=== PATIENT | female | born 1950 | race Caucasian/White ===

== ENCOUNTER → 2016-11-01 | Outpatient (CLI) | payer OTHER, MEDICARE ==
[~2016-11-01] MED LIST: AMBI10TA PO; ASPI81TA85 PO; CALC600T57 PO; CINN500C9 PO; FISH100049 PO; GABA-282 PO; HYDR-3781 PO; JANU100T PO; LOSA25TA8 PO; MAGN250T9 PO; METF850T PO; MULT1TAB9 PO; NATU400T PO; NORC1TAB4 PO; PRAV40TA2 PO; VITATAB11 PO; ZETI10TA2 PO; [UNRECOGNIZED DRUG - OTHER] PO
--- NOTE | 2016-11-13 01:14 | ECWPNPC ---
PATIENT NAME: DELMY CUELLO : 1950 GENDER: FEMALE VISIT DATE: 11/01/2016 DISCHARGE DATE: 11/01/16 1414 VISIT LOCKED DATE TIME: PHYSICIAN: TAMICA MEADOWS PHYSICIAN PAGER NO: [phone] RESOURCE: TAMICA MEADOWS HISTORY OF PRESENT ILLNESS GENERAL: 66 YEAR OLD FEMALE PATIENT WITH HISTORY OF CHRONIC SHOULDER PAIN. PATIENT DESCRIBES THE PAIN ACHING AND STABBING WITH A PAIN SCORE OF 5/10 ON TODAY'S VISIT. PATIENT WAS IN A WORK RELATED INJURY ON 07/21/2009 WHEN SHE FELL AT WORK AND A RESULT HAS HAD FOUR SHOULDER SURGERIES. PATIENT STATES THAT ON THE 3 RD SURGERY SHE DEVELOPED NON HODGKIN LYMPHOMA AND THEN SHE HAD A FOURTH SURGERY TO FIX THAT. PATIENT REPORTS THAT SHE HAS TRIED PHYSICAL THERAPY IN THE PAST WITHOUT ANY IMPROVEMENTS IN MOBILITY AND FUNCTIONAL OR A DECREASE IN PAIN. PATIENT STATES THAT USING VOLTAREN GEL HELPS WITH THE PAIN ON THE RIGHT SHOULDER. PATIENT STATES THAT INJECTIONS AT THIS TIME DO NOT REALLY TO TAKE AWAY THE PAIN, THE MEDICATIONS HELP BUT THE PAIN IS STILL THERE. PATIENT DENIES UNEXPLAINABLE WEIGHT LOSS, FEVER, CHILLS, NEW CHANGES ON HER URINARY OR BOWEL CONTROL. CURRENT MEDICATIONS TAKING VOLTAREN 1 % GEL DIRECTED TRANSDERMAL QID PRN FOR PAIN TAKING VITAMIN E 400 UNIT CAPSULE 1 CAP(S) ORALLY ONCE A DAY TAKING VITAMIN B COMPLEX OTC CAPSULE 2 CAP(S) ORALLY ONCE A DAY TAKING FISH OIL 1000 MG CAPSULE 1 CAPSULE ORALLY TWICE A DAY TAKING GABAPENTIN 300 300 MG TABLET 1 TAB(S) P.O. THREE TIMES A DAY TAKING HYDROCODONE-ACETAMINOPHEN 5-325 MG TABLET 1 TABLET NEEDED ORALLY THREE X DAILY TAKING PRAVASTATIN SODIUM 40 MG TABLET 1 TABLET ORALLY ONCE A DAY TAKING AMBIEN 10 MG TABLET 1 TABLET AT BEDTIME ORALLY QHS, PRN SLEEP, MDD=ONE, NOTES: REFERENCE #: [id number] TAKING ZETIA 10 MG TABLET 1 TABLET ORALLY ONCE A DAY TAKING CALCIUM 600 + D 600-400 MG-UNIT TABLET OTC 1 TABLET ORALLY TWICE A DAY TAKING ACCU-CHEK ACTIVE CARE KIT 1 .. METER SUBCUTANEOUSLY DIRECTED TAKING ACCU-CHEK ACTIVE -- STRIP DIRECTED SUBCUTANEOUSLY DAILY NEEDED TAKING ASPIRIN 81 MG TABLET 1 TABLET ORALLY ONCE A DAY TAKING JANUVIA 100 MG TABLET 1 TABLET ORALLY ONCE A DAY TAKING METFORMIN HCL 850 MG TABLET 1 TABLET WITH A MEAL ORALLY TID TAKING JARDIANCE 25 MG TABLET 1 TABLET ORALLY ONCE A DAY TAKING BASAGLAR KWIKPEN 100 UNIT/ML SOLUTION PEN-INJECTOR 20 UNITS SUBCUTANEOUS DAILY TAKING PEN NEEDLES 1/2" 29G X 12MM MISCELLANEOUS 100 SUBCUTANEOUSLY DAILY TAKING MULTIVITAMINS OTC TABLET 2 TABLET ORALLY ONCE A DAY TAKING MAGNESIUM 250 MG 1 TABLET ONCE DAILY TAKING VITAMIN D 1000 UNIT TABLET OTC 1 TABLET ORALLY ONCE A DAY PAST MEDICAL HISTORY PMB/PELVIC PAIN CHRONIC DRY EYE DEPRESSION ALLERGIC RHINITIS OSTEOARTHRITIS CVA WITH MEMORY EFFECT RESIDUAL, ABOUT 2005. 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 EXAMINATION GENERAL: PATIENT IS ALERT O X 3 AND COOPERATIVE. PATIENT IS ABLE TO ABDUCT HER LEFT ARM, BUT THE ARM ONLY TO 45 DEGREES WITH DISCOMFORT. PATIENT RIGHT ARM IS WEAKER AT FLEXION AND EXTENSION COMPARED TO THE LEFT ARM. HAND INSIDE BARREL LATHE OPERATOR IS WEAKER ON THE RIGHT COMPARED TO THE LEFT. ASSESSMENTS PAIN IN RIGHT SHOULDER - M25.511 (PRIMARY) TREATMENT PAIN IN RIGHT SHOULDER NOTES: WE DISCUSSED SEVERAL ISSUES WITH MRS. CUELLO'S PAIN MANAGEMENT CASE. I DISCUSSED IN DETAIL WITH THE PATIENT ABOUT A SPINAL COLUMN STIMULATOR. AT THIS TIME THAT PATIENT WOULD LIKE TO PROCEED FORWARD. I WILL WRITE A SCRIPT FOR A THORACIC AND CERVICAL MRI TO DETERMINE IF THERE IS ENOUGH SPACE IN THE SPINE. PATIENT WILL BE REFERRED TO A PSYCHOLOGIST FOR A PSYCHOLOGICAL EVALUATION. PATIENT TO FOLLOW UP WITH ME IN 6 WEEKS. INSTRUCTIONS WERE GIVEN, QUESTIONS WERE ANSWERED, PATIENT REPORTS UNDERSTANDING AND AGREES WITH THE PLAN. I, SINA GUSMAN, DOCUMENTED THE ABOVE INFORMATION ACTING A SCRIBE FOR DR. MEADOWS. I HAVE REVIEWED THE ABOVE DOCUMENT, WRITTEN BY SINA CARMONA AND I VERIFY THAT IT IS ACCURATE. PROCEDURES PN WORKMANS' COMP OPINION IN YOUR OPINION, WAS THE INCIDENT THAT THE PATIENT DESCRIBED THE COMPETENT MEDICAL CAUSE OF THIS INJURY/ILLNESS? YES ARE THE PATIENT'S COMPLAINTS CONSISTENT WITH HIS/HER HISTORY OF THE INJURY/ILLNESS? YES IS THE PATIENT'S HISTORY OF THE INJURY/ILLNESS CONSISTENT WITH YOUR OBJECTIVE FINDING? YES WHAT IS THE PERCENTAGE OF TEMPORARY IMPAIRMENT? MARKED = 75% IS THE PATIENT WORKING? NO DOCTOR ON SITE: TAMICA NIÑO MD PROCEDURE CODES FA211 ESTABILISHED PATIENT [facility] FACILITY CHARGE G8730 PAIN ASSESS POS TOOL F/U PLAN DOC G8427 DOC MEDS VERIFIED W/PT OR RE DISPOSITION & COMMUNICATION FOLLOW UP 6 WEEKS ELECTRONICALLY SIGNED BY TAMICA MEADOWS MD ON 11/12/2016 AT 06:04 PM EDT DISCLAIMER : THIS IS A VISIT SUMMARY EXTRACTED FROM THE [employer] CHART. IT IS NOT A COPY OF THE [employer] PROGRESS NOTE. MONICA
== END ==
LOC: M PAIN 13:20
PROVIDERS: ATTEND Anesthesiology
DX: G89.29 Other chronic pain (principal); M25.511 Pain in right shoulder; F32.9 Major depressive disorder, single episode, unspecified; J30.9 Allergic rhinitis, unspecified; M19.90 Unspecified osteoarthritis, unspecified site; I69.311 Memory deficit following cerebral infarction; I10 Essential (primary) hypertension; E11.9 Type 2 diabetes mellitus without complications; E78.00 Pure hypercholesterolemia, unspecified; G60.9 Hereditary and idiopathic neuropathy, unspecified; Z88.8 Allergy status to other drugs, medicaments and biological substances; Z79.82 Long term (current) use of aspirin; Z79.84 Long term (current) use of oral hypoglycemic drugs; Z79.899 Other long term (current) drug therapy

== ENCOUNTER → 2016-11-19 | Outpatient (CLI) | payer MEDICARE, OTHER ==
--- NOTE | 2016-11-19 11:26 | REPMRS ---
Patient History The patient states she has not had a clinical breast exam in over a year. Patient is postmenopausal, had previous chemotherapy at age 64, and has history of nonhodgkins lymphoma cancer at age 60. Family history of breast cancer in sister at age 60 and breast cancer in sister at age 67. Digital Woman Screen Mammo: November 19, 2016 - Exam #: [id number] Bilateral CC and MLO view(s) were taken. Technologist: Shari Grimm, Technologist Prior study comparison: November 17, 2015, digital woman screen mammo performed at [facility] [employer]. April 25, 2014, digital woman screen mammo performed at [facility] [employer]. FINDINGS: There are scattered fibroglandular densities. There has been no change in the appearance of the mammogram from the prior studies. There is a mild amount of residual fibroglandular tissue which is fairly symmetric. There is no interval development of dominant mass, architectural distortion, or clustered microcalcification suggestive of malignancy. ASSESSMENT: BI-RADS/ACR category 1 mammogram. Negative. Recommendation Routine screening mammogram in 1 year (for women over age 40). This mammogram was interpreted with the aid of an FDA-approved computer-aided dectection system. Electronically Signed By: Tam Arias MD 11/19/16 [id number]
== END ==
LOC: M WHC 09:48
PROVIDERS: ATTEND Nurse Practitioner
DX: Z12.31 Encounter for screening mammogram for malignant neoplasm of breast (principal); Z78.0 Asymptomatic menopausal state; Z92.21 Personal history of antineoplastic chemotherapy; Z85.9 Personal history of malignant neoplasm, unspecified; Z80.3 Family history of malignant neoplasm of breast

== ENCOUNTER → 2016-12-05 | Outpatient (CLI) | payer OTHER, MEDICARE ==
--- NOTE | 2016-12-14 00:30 | ECWPNPC ---
PATIENT NAME: DELMY CUELLO : 1950 GENDER: FEMALE VISIT DATE: 12/05/2016 DISCHARGE DATE: 12/05/16 1506 VISIT LOCKED DATE TIME: PHYSICIAN: TAMICA MEADOWS PHYSICIAN PAGER NO: [phone] RESOURCE: TAMICA MEADOWS REASON FOR APPOINTMENT 1. W/C RIGHT SHOULDER HISTORY OF PRESENT ILLNESS HISTORY OF PRESENT ILLNESS: PAIN THE PATIENT DESCRIBES THE PAIN... 66 YEAR OLD FEMALE PATIENT WITH HISTORY OF CHRONIC SHOULDER PAIN. PATIENT DESCRIBES THE PAIN ACHING AND STABBING WITH A PAIN SCORE OF 5/10 ON TODAY'S VISIT. PATIENT WAS IN A WORK RELATED INJURY ON 07/21/2009 WHEN SHE FELL AT WORK AND A RESULT HAS HAD FOUR SHOULDER SURGERIES. PATIENT STATES THAT ON THE 3RD SURGERY SHE DEVELOPED NON HODGKIN LYMPHOMA AND THEN SHE HAD A FOURTH SURGERY TO FIX THAT. PATIENT REPORTS THAT SHE HAS TRIED PHYSICAL THERAPY IN THE PAST WITHOUT ANY IMPROVEMENTS IN MOBILITY AND FUNCTIONAL OR A DECREASE IN PAIN. PATIENT STATES THAT USING VOLTAREN GEL HELPS WITH THE PAIN ON THE RIGHT SHOULDER. PATIENT STATES THAT INJECTIONS AT THIS TIME DO NOT REALLY TO TAKE AWAY THE PAIN, THE MEDICATIONS HELP BUT THE PAIN IS STILL THERE. MRS. CUELLO STATES THAT SHE IS WAITING FOR HEAR FROM THE PSYCHOLOGIST ABOUT HER EVALUATION. PATIENT DENIES UNEXPLAINABLE WEIGHT LOSS, FEVER, CHILLS, NEW CHANGES ON HER URINARY OR BOWEL CONTROL. FALL RISK SCREENING: SCREENING :NO FALLS IN THE PAST YEAR CURRENT MEDICATIONS TAKING JARDIANCE 25 MG TABLET 1 TABLET ORALLY ONCE A DAY TAKING ZETIA 10 MG TABLET 1 TABLET ONCE A DAY ORALLY 90 DAY(S) TAKING VOLTAREN 1 % GEL DIRECTED TRANSDERMAL QID PRN FOR PAIN TAKING FISH OIL 1000 MG CAPSULE 1 CAPSULE ORALLY TWICE A DAY TAKING GABAPENTIN 300 300 MG TABLET 1 TAB(S) P.O. THREE TIMES A DAY TAKING HYDROCODONE-ACETAMINOPHEN 5-325 MG TABLET 1 TABLET NEEDED ORALLY THREE X DAILY TAKING PRAVASTATIN SODIUM 40 MG TABLET 1 TABLET ORALLY ONCE A DAY TAKING AMBIEN 10 MG TABLET 1 TABLET AT BEDTIME ORALLY QHS, PRN SLEEP, MDD=ONE, NOTES: REFERENCE #: [id number] TAKING CALCIUM 600 + D 600-400 MG-UNIT TABLET OTC 1 TABLET ORALLY TWICE A DAY TAKING ACCU-CHEK ACTIVE CARE KIT 1 .. METER SUBCUTANEOUSLY DIRECTED TAKING ACCU-CHEK ACTIVE -- STRIP DIRECTED SUBCUTANEOUSLY DAILY NEEDED TAKING JANUVIA 100 MG TABLET 1 TABLET ORALLY ONCE A DAY TAKING METFORMIN HCL 850 MG TABLET 1 TABLET WITH A MEAL ORALLY TID TAKING BASAGLAR KWIKPEN 100 UNIT/ML SOLUTION PEN-INJECTOR 20 UNITS SUBCUTANEOUS DAILY TAKING PEN NEEDLES 1/2" 29G X 12MM MISCELLANEOUS 100 SUBCUTANEOUSLY DAILY TAKING MAGNESIUM 250 MG 1 TABLET ONCE DAILY TAKING KLOR-CON 10 10 MEQ TABLET EXTENDED RELEASE 1 TAB ORALLY DAILY TAKING MULTIVITAMINS OTC TABLET 2 TABLET ORALLY ONCE A DAY TAKING VITAMIN D 1000 UNIT TABLET OTC 1 TABLET ORALLY ONCE A DAY TAKING ASPIRIN 81 MG TABLET 1 TABLET ORALLY ONCE A DAY NOT-TAKING VITAMIN E 400 UNIT CAPSULE 1 CAP(S) ORALLY ONCE A DAY NOT-TAKING VITAMIN B COMPLEX OTC CAPSULE 2 CAP(S) ORALLY ONCE A DAY MEDICATION LIST REVIEWED AND RECONCILED WITH THE PATIENT PAST MEDICAL HISTORY PMB/PELVIC PAIN CHRONIC DRY EYE DEPRESSION ALLERGIC RHINITIS OSTEOARTHRITIS CVA WITH MEMORY EFFECT RESIDUAL, ABOUT 2005. 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 SKIN 2011 LIPOSUCTION BELLY FAT TAKEN OFF HYSTEROSCOPY, D&C WITH DR. CUNNINGHAM JUN 2011 EYE PLUGS INSERTED FOR DRY EYE MAY 2012 ROTATOR CUFF RIGHT SHOULDER 04/17/2013 SHOULDER SURGERY RIGHT DUE TO NONHODKINS LYMPOMA X3 03/2014 RIGHT SHOULDER SURGERY 2015 HYSTERECTOMY 2016 COLONOSCOPY 05/08/2015 FAMILY HISTORY NO FAMILY HISTORY DOCUMENTED. SOCIAL HISTORY GENERAL: TOBACCO USE ARE YOU A:FORMER SMOKER HOW LONG HAS IT BEEN SINCE YOU LAST SMOKED?> 10 YEARS VAPORNO E-CIGARETTENO BMI CARE GOAL FOLLOW-UP ABOVE NORMAL BMI FOLLOW-UPGIVING ENCOURAGEMENT TO EXERCISE ALCOHOL SCREENING DID YOU HAVE A DRINK CONTAINING ALCOHOL IN THE PAST YEAR?YES POINTS1 INTERPRETATIONNEGATIVE HOW OFTEN DID YOU HAVE A DRINK CONTAINING ALCOHOL IN THE PAST YEAR?MONTHLY OR LESS (1 POINT) HOW MANY DRINKS DID YOU HAVE ON A TYPICAL DAY WHEN YOU WERE DRINKING IN THE PAST YEAR?1 OR 2 (0 POINTS) HOW OFTEN DID YOU HAVE SIX OR MORE DRINKS ON ONE OCCASION IN THE PAST YEAR?NEVER (0 POINTS) RECREATIONAL DRUG USE DRUG USE? NO . CAFFEINE CAFFEINE USE?YES HOW OFTEN AND HOW MUCH? 2 CUPS PER DAY SEXUAL HX HAD SEX IN THE LAST 12 MONTHS (VAGINAL, ORAL, OR ANAL)?YES WITHMEN ONLY USE PROTECTION?NO HAVE YOU EVER HAD AN STD?NO HIV / HEP-C SCREENING HIV TEST OFFERED TO PATIENT:YES DATE OFFERED:10/28/2016 TEST ACCEPTED:NO REASON:PATIENT DECLINED HEP-C TEST OFFERED TO PATIENT:YES DATE OFFERED:10/28/2016 TEST ACCEPTED:NO REASON:PATIENT DECLINED OCCUPATION: RETIRED. MARITAL STATUS: . OTHERS AT HOME: SPOUSE. HINDUISM HINDUISM NO LUTHERAN BELIEFS THAT WOULD IMPACT HEALTH CARE. LANGUAGE LANGUAGES SPOKEN:MALAWIAN LEARNING BARRIERS / SPECIAL NEEDS CHANGE FROM LAST VISIT?NO 10/28/2016 BARRIERS TO LEARNING?NO HEARING IMPAIRED?NO VISION IMPAIRED?NO COGNITIVELY IMPAIRED?NO READINESS TO LEARN?YES LEARNING PREFERENCES?NO LEARNING CAPABILITIES PRESENT?YES EMOTIONAL BARRIERS?NO SPECIAL DEVICES?NO SKATESMAN NEEDED?NO PSYCHOLOGICAL HX TREATMENT NO . PAIN CLINIC PFS, CLERGY, PUBLIC HEALTH REFERRALS PFS REFERRAL NEEDED? NO , PFS REFERRAL NEEDED? NO , CLERGY REFERRAL NEEDED? NO , CLERGY REFERRAL NEEDED? NO , PUBLIC HEALTH REFERRAL NEEDED? NO , PUBLIC HEALTH REFERRAL NEEDED? NO , WAS THE PROVIDER NOTIFIED OF ANY PERTINENT INFO? NO , WAS THE PROVIDER NOTIFIED OF ANY PERTINENT INFO? NO . PATIENT: ____. ADVANCE DIRECTIVES HEALTH CARE PROXY?YES NAME OF HCP LIDIA WILLARD CONTACT # FOR HCP POWER OF TRAVOGRAPH OPERATOR?NO HOSPITALIZATION/MAJOR DIAGNOSTIC PROCEDURE SURGERY RELATED REVIEW OF SYSTEMS REVIEWED BY: PROVIDER: TAMICA MEADOWS MD . CONSTITUTIONAL: ANY CHANGE IN YOUR MEDICAL CONDITION? NO . CHILLS NO . FEVER NO . INFECTION: DO YOU HAVE NEW INFECTIONS? NO . DO YOU HAVE HISTORY OF MRSA? NO . MUSCULOSKELETAL: ANY NEW PATTERNS OF PAIN OR NUMBNESS? NO . GASTROENTEROLOGY: ANY NEW CHANGE IN BOWEL CONTROL? NO . GENITOURINARY: ANY NEW CHANGE IN BLADDER CONTROL? NO . IS THERE A CHANCE YOU COULD BE ? NO . HEMATOLOGY/LYMPH: DO YOU TAKE ANY BLOOD THINNERS? (FOR EXAMPLE- COUMADIN, PLAVIX, AGGRENOX, PLATEL, PRADAXA, OR XARELTO) YES, ASPIRIN 81 MG . WHEN WAS YOUR LAST DOSE? DATE: TIME: . NEUROLOGY: HAVE YOU FALLEN IN THE PAST 6 MONTHS? NO . ANY NEW EXTREMITY NUMBNESS OR WEAKNESS? NO . CARDIOLOGY: DO YOU HAVE A PACEMAKER OR DEFIBRILLATOR? NO . RESPIRATORY: HAVE YOU BEEN SICK IN THE PAST WEEK? NO . FEVER NO . FLU LIKE SYMPTOMS? NO . COUGH NO . INTEGUMENTARY: DO YOU HAVE ANY RASHES OR OPEN SORES? NO . ALLERGIC/IMMUNO: ARE YOU ALLERGIC TO SHELLFISH OR IV DYE? YES . ANY NEW ALLERGIES? NO . PSYCHIATRIC: DO YOU HAVE THOUGHTS OF HURTING YOURSELF OR SOMEONE ELSE? NO . ARE YOU ABUSED, NEGLECTED, OR IN AN UNSAFE ENVIRONMENT? NO . ENDOCRINOLOGY: ARE YOU DIABETIC? NO . OTHER: DO YOU NEED ANY PRESCRIPTIONS? NO . IF YES, PLEASE LIST: ____ . ANY NEW PROBLEMS WITH YOUR MEDICATIONS? NO . WHEN DID YOU LAST EAT? ____ . WHEN DID YOU LAST DRINK? ____ . WHAT DID YOU LAST DRINK? ____ . NAME OF PERSON DRIVING YOU HOME? ____ . DO YOU HAVE ANY OTHER QUESTIONS OR CONCERNS NO . VITAL SIGNS WT 174.0 LBS, HT 66.75 IN, BMI 27.45 INDEX, BP 134/77 MM HG, HR 80 /MIN, RR 16 /MIN, TEMP 97.7 F, OXYGEN SAT % 94%, NA INITIALS TL 1344, REVIEWED BY: MCKAY. EXAMINATION : PATIENT IS ALERT O X 3 AND COOPERATIVE. PATIENT IS ABLE TO ABDUCT HER LEFT ARM, BUT THE ARM ONLY TO 45 DEGREES WITH DISCOMFORT. PATIENT RIGHT ARM IS WEAKER AT FLEXION AND EXTENSION COMPARED TO THE LEFT ARM. HAND VIDEO GAME ANIMATOR IS WEAKER ON THE RIGHT COMPARED TO THE LEFT. ASSESSMENTS PAIN IN RIGHT SHOULDER - M25.511 (PRIMARY) TREATMENT PAIN IN RIGHT SHOULDER NOTES: WE DISCUSSED SEVERAL ISSUES WITH MRS. CUELLO'S PAIN MANAGEMENT CASE. AT THIS TIME THE PATIENT WILL CONTINUE TO USE THE GABAPENTIN AND VOLTAREN GEL TO AID IN PAIN RELIEF. PATIENT STATES SHE IS WAITING TO HEAR FROM THE PSYCHOLOGIST ABOUT THE EVALUATION AND STILL NEEDS TO DO THE MRI'S. PATIENT WILL SPEAK WITH THE REPS FROM [facility] AND [facility] BEFORE MAKING A CHOICE. I WOULD LIKE THE PATIENT TO RETURN IN 6 WEEKS AFTER THE PSYCHOLOGICAL EVALUATION WELL THE MRI'S. INSTRUCTIONS WERE GIVEN, QUESTIONS WERE ANSWERED, PATIENT REPORTS UNDERSTANDING AND AGREES WITH THE PLAN. I, SELENE DAY, DOCUMENTED THE ABOVE INFORMATION ACTING A SCRIBE FOR DR. MEADOWS. I HAVE REVIEWED THE ABOVE DOCUMENT, WRITTEN BY SELENE CARMONA AND I VERIFY THAT IT IS ACCURATE. PROCEDURES PN WORKMANS' COMP OPINION IN YOUR OPINION, WAS THE INCIDENT THAT THE PATIENT DESCRIBED THE COMPETENT MEDICAL CAUSE OF THIS INJURY/ILLNESS? YES ARE THE PATIENT'S COMPLAINTS CONSISTENT WITH HIS/HER HISTORY OF THE INJURY/ILLNESS? YES IS THE PATIENT'S HISTORY OF THE INJURY/ILLNESS CONSISTENT WITH YOUR OBJECTIVE FINDING? YES WHAT IS THE PERCENTAGE OF TEMPORARY IMPAIRMENT? MARKED = 75% IS THE PATIENT WORKING? NO DOCTOR ON SITE: TAMICA NIÑO MD PROCEDURE CODES FA211 ESTABILISHED PATIENT [facility] FACILITY CHARGE G8427 DOC MEDS VERIFIED W/PT OR RE G8730 PAIN ASSESS POS TOOL F/U PLAN DOC DISPOSITION & COMMUNICATION FOLLOW UP 6 WEEKS ELECTRONICALLY SIGNED BY TAMICA MEADOWS MD ON 12/13/2016 AT 08:22 AM EDT DISCLAIMER : THIS IS A VISIT SUMMARY EXTRACTED FROM THE [employer] CHART. IT IS NOT A COPY OF THE [employer] PROGRESS NOTE. MONICA
== END ==
LOC: M PAIN 13:20
PROVIDERS: ATTEND Anesthesiology
DX: G89.29 Other chronic pain (principal); M25.511 Pain in right shoulder; F32.9 Major depressive disorder, single episode, unspecified; J30.89 Other allergic rhinitis; M19.90 Unspecified osteoarthritis, unspecified site; I10 Essential (primary) hypertension; E11.40 Type 2 diabetes mellitus with diabetic neuropathy, unspecified; E78.00 Pure hypercholesterolemia, unspecified; G60.9 Hereditary and idiopathic neuropathy, unspecified; Z88.8 Allergy status to other drugs, medicaments and biological substances; Z79.82 Long term (current) use of aspirin; Z79.84 Long term (current) use of oral hypoglycemic drugs; Z79.899 Other long term (current) drug therapy; Z87.891 Personal history of nicotine dependence

== ENCOUNTER → 2016-12-09 | Outpatient (REF) | payer MEDICARE, OTHER ==
[~2016-12-09] MED LIST changes: +BASA100I SC; +JARD1TAB3 PO; -METF850T PO; +METF850T4 PO; +VITA-122 PO; -ZETI10TA2 PO; +ZETI10TA30 PO
[2016-12-09 12:34] LABS: ALBUMIN 4.4 GM/DL (3.2-5.2); ALBUMIN/GLOBULIN RATIO 1.22 (1.00-1.93); ALKALINE PHOSPHATASE 79 U/L (45-117); ALT/SGPT 60 U/L (12-78); ANION GAP 9 MEQ/L (8-16); AST/SGOT 37 U/L (15-37); BILIRUBIN,TOTAL 0.4 MG/DL (0.2-1.0); BLOOD UREA NITROGEN 15 MG/DL (7-18); CARBON DIOXIDE LEVEL 28 MEQ/L (21-32); CHLORIDE LEVEL 102 MEQ/L (98-107); CHOLESTEROL LEVEL 182 MG/DL (<200); CREATININE FOR GFR 0.82 MG/DL (0.55-1.02); GLOMERULAR FILTRATION RATE > 60.0 (>45); GLUCOSE, FASTING 144 MG/DL (80-110); POTASSIUM SERUM 4.2 MEQ/L (3.5-5.1); SODIUM LEVEL 139 MEQ/L (136-145); TRIGLYCERIDES LEVEL 279 MG/DL (<150)
== END ==
LOC: M SFHCCLAY 08:00
PROVIDERS: ATTEND Nurse Practitioner
DX: E11.8 Type 2 diabetes mellitus with unspecified complications (principal)

== ENCOUNTER → 2017-01-14 | Outpatient (CLI) | payer OTHER ==
--- NOTE | 2017-01-30 00:19 | ECWPNPC ---
PATIENT NAME: DELMY CUELLO : 1950 GENDER: FEMALE VISIT DATE: 01/14/2017 DISCHARGE DATE: 01/14/17 1643 VISIT LOCKED DATE TIME: PHYSICIAN: TAMICA MEADOWS PHYSICIAN PAGER NO: [phone] RESOURCE: TAMICA MEADOWS REASON FOR APPOINTMENT 1. RIGHT SHOULDER PAIN W/C HISTORY OF PRESENT ILLNESS HISTORY OF PRESENT ILLNESS: PAIN THE PATIENT DESCRIBES THE PAIN... 66 YEAR OLD FEMALE PATIENT WITH HISTORY OF CHRONIC SHOULDER PAIN. PATIENT DESCRIBES THE PAIN ACHING AND STABBING WITH A PAIN SCORE OF 5/10 ON TODAY'S VISIT. PATIENT WAS IN A WORK RELATED INJURY ON 07/21/2009 WHEN SHE FELL AT WORK AND A RESULT HAS HAD FOUR SHOULDER SURGERIES. PATIENT STATES THAT ON THE 3RD SURGERY SHE DEVELOPED NON HODGKIN LYMPHOMA AND THEN SHE HAD A FOURTH SURGERY TO FIX THAT. PATIENT REPORTS THAT SHE HAS TRIED PHYSICAL THERAPY IN THE PAST WITHOUT ANY IMPROVEMENTS IN MOBILITY AND FUNCTIONAL OR A DECREASE IN PAIN. PATIENT STATES THAT USING VOLTAREN GEL HELPS WITH THE PAIN ON THE RIGHT SHOULDER. MRS. CUELLO STATES THAT SHE HAS HAD HER PSYCHOLOGICAL EVALUATION BUT HAS NOT HEARD ABOUT THE MRI'S. PATIENT DENIES UNEXPLAINABLE WEIGHT LOSS, FEVER, CHILLS, NEW CHANGES ON HER URINARY OR BOWEL CONTROL. FALL RISK SCREENING: SCREENING :NO FALLS IN THE PAST YEAR CURRENT MEDICATIONS TAKING JARDIANCE 25 MG TABLET 1 TABLET ORALLY ONCE A DAY TAKING ZETIA 10 MG TABLET 1 TABLET ONCE A DAY ORALLY 90 DAY(S) TAKING VOLTAREN 1 % GEL DIRECTED TRANSDERMAL QID PRN FOR PAIN TAKING FISH OIL 1000 MG CAPSULE 1 CAPSULE ORALLY TWICE A DAY TAKING GABAPENTIN 300 300 MG TABLET 1 TAB(S) P.O. THREE TIMES A DAY TAKING HYDROCODONE-ACETAMINOPHEN 5-325 MG TABLET 1 TABLET NEEDED ORALLY THREE X DAILY TAKING AMBIEN 10 MG TABLET 1 TABLET AT BEDTIME ORALLY QHS, PRN SLEEP, MDD=ONE, NOTES: REFERENCE #: [id number] TAKING CALCIUM 600 + D 600-400 MG-UNIT TABLET OTC 1 TABLET ORALLY TWICE A DAY TAKING ACCU-CHEK ACTIVE CARE KIT 1 .. METER SUBCUTANEOUSLY DIRECTED TAKING ACCU-CHEK ACTIVE -- STRIP DIRECTED SUBCUTANEOUSLY DAILY NEEDED TAKING JANUVIA 100 MG TABLET 1 TABLET ORALLY ONCE A DAY TAKING METFORMIN HCL 850 MG TABLET 1 TABLET WITH A MEAL ORALLY TID TAKING BASAGLAR KWIKPEN 100 UNIT/ML SOLUTION PEN-INJECTOR 20 UNITS SUBCUTANEOUS DAILY TAKING PEN NEEDLES 1/2" 29G X 12MM MISCELLANEOUS 100 SUBCUTANEOUSLY DAILY TAKING MAGNESIUM 250 MG 1 TABLET ONCE DAILY TAKING MULTIVITAMINS OTC TABLET 2 TABLET ORALLY ONCE A DAY TAKING VITAMIN D 1000 UNIT TABLET OTC 1 TABLET ORALLY ONCE A DAY TAKING ASPIRIN 81 MG TABLET 1 TABLET ORALLY ONCE A DAY TAKING PRAVASTATIN SODIUM 40 MG TABLET 1 TABLET ORALLY ONCE A DAY TAKING KLOR-CON 10 10 MEQ TABLET EXTENDED RELEASE 1 TAB ORALLY DAILY NOT-TAKING VITAMIN E 400 UNIT CAPSULE 1 CAP(S) ORALLY ONCE A DAY NOT-TAKING VITAMIN B COMPLEX OTC CAPSULE 2 CAP(S) ORALLY ONCE A DAY MEDICATION LIST REVIEWED AND RECONCILED WITH THE PATIENT PAST MEDICAL HISTORY PMB/PELVIC PAIN CHRONIC DRY EYE DEPRESSION ALLERGIC RHINITIS OSTEOARTHRITIS CVA WITH MEMORY EFFECT RESIDUAL, ABOUT 2005. 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 SKIN 2011 LIPOSUCTION BELLY FAT TAKEN OFF HYSTEROSCOPY, D&C WITH DR. CUNNINGHAM JUN 2011 EYE PLUGS INSERTED FOR DRY EYE MAY 2012 ROTATOR CUFF RIGHT SHOULDER 04/17/2013 SHOULDER SURGERY RIGHT DUE TO NONHODKINS LYMPOMA X3 03/2014 RIGHT SHOULDER SURGERY 2015 HYSTERECTOMY 2016 COLONOSCOPY 05/08/2015 FAMILY HISTORY NO FAMILY HISTORY DOCUMENTED. SOCIAL HISTORY GENERAL: TOBACCO USE ARE YOU A:FORMER SMOKER HOW LONG HAS IT BEEN SINCE YOU LAST SMOKED?> 10 YEARS VAPORNO E-CIGARETTENO BMI CARE GOAL FOLLOW-UP ABOVE NORMAL BMI FOLLOW-UPGIVING ENCOURAGEMENT TO EXERCISE ALCOHOL SCREENING DID YOU HAVE A DRINK CONTAINING ALCOHOL IN THE PAST YEAR?YES POINTS1 INTERPRETATIONNEGATIVE HOW OFTEN DID YOU HAVE A DRINK CONTAINING ALCOHOL IN THE PAST YEAR?MONTHLY OR LESS (1 POINT) HOW MANY DRINKS DID YOU HAVE ON A TYPICAL DAY WHEN YOU WERE DRINKING IN THE PAST YEAR?1 OR 2 (0 POINTS) HOW OFTEN DID YOU HAVE SIX OR MORE DRINKS ON ONE OCCASION IN THE PAST YEAR?NEVER (0 POINTS) RECREATIONAL DRUG USE DRUG USE? NO . CAFFEINE CAFFEINE USE?YES HOW OFTEN AND HOW MUCH? 2 CUPS PER DAY SEXUAL HX HAD SEX IN THE LAST 12 MONTHS (VAGINAL, ORAL, OR ANAL)?YES WITHMEN ONLY USE PROTECTION?NO HAVE YOU EVER HAD AN STD?NO HIV / HEP-C SCREENING HIV TEST OFFERED TO PATIENT:YES DATE OFFERED:10/28/2016 TEST ACCEPTED:NO REASON:PATIENT DECLINED HEP-C TEST OFFERED TO PATIENT:YES DATE OFFERED:10/28/2016 TEST ACCEPTED:NO REASON:PATIENT DECLINED OCCUPATION: RETIRED. MARITAL STATUS: . OTHERS AT HOME: SPOUSE. JUDAISM JUDAISM NO TENRIISM BELIEFS THAT WOULD IMPACT HEALTH CARE. LANGUAGE LANGUAGES SPOKEN:KAZAKH LEARNING BARRIERS / SPECIAL NEEDS CHANGE FROM LAST VISIT?NO 10/28/2016 BARRIERS TO LEARNING?NO HEARING IMPAIRED?NO VISION IMPAIRED?NO COGNITIVELY IMPAIRED?NO READINESS TO LEARN?YES LEARNING PREFERENCES?NO LEARNING CAPABILITIES PRESENT?YES EMOTIONAL BARRIERS?NO SPECIAL DEVICES?NO BOLTING MACHINE OPERATOR NEEDED?NO PSYCHOLOGICAL HX TREATMENT NO . PAIN CLINIC PFS, CLERGY, PUBLIC HEALTH REFERRALS PFS REFERRAL NEEDED? NO , PFS REFERRAL NEEDED? NO , CLERGY REFERRAL NEEDED? NO , CLERGY REFERRAL NEEDED? NO , PUBLIC HEALTH REFERRAL NEEDED? NO , PUBLIC HEALTH REFERRAL NEEDED? NO , WAS THE PROVIDER NOTIFIED OF ANY PERTINENT INFO? NO , WAS THE PROVIDER NOTIFIED OF ANY PERTINENT INFO? NO . PATIENT: ____. ADVANCE DIRECTIVES HEALTH CARE PROXY?YES NAME OF HCP LIDIA WILLARD CONTACT # FOR HCP POWER OF DIRECTOR OF RETAIL ANALYTICS?NO HOSPITALIZATION/MAJOR DIAGNOSTIC PROCEDURE SURGERY RELATED REVIEW OF SYSTEMS REVIEWED BY: PROVIDER: TAMICA MEADOWS MD . CONSTITUTIONAL: ANY CHANGE IN YOUR MEDICAL CONDITION? NO . CHILLS NO . FEVER NO . INFECTION: DO YOU HAVE NEW INFECTIONS? NO . DO YOU HAVE HISTORY OF MRSA? NO . MUSCULOSKELETAL: ANY NEW PATTERNS OF PAIN OR NUMBNESS? NO . GASTROENTEROLOGY: ANY NEW CHANGE IN BOWEL CONTROL? NO . GENITOURINARY: ANY NEW CHANGE IN BLADDER CONTROL? NO . IS THERE A CHANCE YOU COULD BE ? NO . HEMATOLOGY/LYMPH: DO YOU TAKE ANY BLOOD THINNERS? (FOR EXAMPLE- COUMADIN, PLAVIX, AGGRENOX, PLATEL, PRADAXA, OR XARELTO) NO . WHEN WAS YOUR LAST DOSE? DATE: TIME: . NEUROLOGY: HAVE YOU FALLEN IN THE PAST 6 MONTHS? NO . ANY NEW EXTREMITY NUMBNESS OR WEAKNESS? NO . CARDIOLOGY: DO YOU HAVE A PACEMAKER OR DEFIBRILLATOR? NO . RESPIRATORY: HAVE YOU BEEN SICK IN THE PAST WEEK? NO . FEVER NO . FLU LIKE SYMPTOMS? NO . COUGH NO . INTEGUMENTARY: DO YOU HAVE ANY RASHES OR OPEN SORES? NO . ALLERGIC/IMMUNO: ARE YOU ALLERGIC TO SHELLFISH OR IV DYE? NO . ANY NEW ALLERGIES? NO . PSYCHIATRIC: DO YOU HAVE THOUGHTS OF HURTING YOURSELF OR SOMEONE ELSE? NO . ARE YOU ABUSED, NEGLECTED, OR IN AN UNSAFE ENVIRONMENT? NO . ENDOCRINOLOGY: ARE YOU DIABETIC? YES . OTHER: DO YOU NEED ANY PRESCRIPTIONS? NO . IF YES, PLEASE LIST: ____ . ANY NEW PROBLEMS WITH YOUR MEDICATIONS? NO . WHEN DID YOU LAST EAT? ____ . WHEN DID YOU LAST DRINK? ____ . WHAT DID YOU LAST DRINK? ____ . NAME OF PERSON DRIVING YOU HOME? ____ . DO YOU HAVE ANY OTHER QUESTIONS OR CONCERNS YES, WANTS TO KNOW IF COMP PAYS FOR MEDICAL MARIJUANA? . VITAL SIGNS WT 175.0 LBS, HT 66.75 IN, BMI 27.61 INDEX, BP 121/58 MM HG, HR 63 /MIN, RR 16 /MIN, TEMP 97.7 F, OXYGEN SAT % 96%, NA INITIALS TL 1508, REVIEWED BY: RADHA. EXAMINATION : PATIENT IS ALERT O X 3 AND COOPERATIVE. PATIENT IS ABLE TO ABDUCT HER LEFT ARM, BUT THE ARM ONLY TO 45 DEGREES WITH DISCOMFORT. PATIENT RIGHT ARM IS WEAKER AT FLEXION AND EXTENSION COMPARED TO THE LEFT ARM. HAND UNDERCOVER OPERATOR IS WEAKER ON THE RIGHT COMPARED TO THE LEFT. 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 CUELLO'S PAIN MANAGEMENT CASE. PATIENT WILL CONTINUE WITH THE SAME MEDICATION REGIME. PATIENT USES HYDROCODONE FOR THE SOMATIC PAIN AND VOLTAREN GEL FOR THE SOMATIC PAIN. PATIENT DENIES ABUSE OF ANY MEDICATION, DENIES USE OF ILLEGAL SUBSTANCES, AND STATES SHE IS ONLY USING THE MEDICATION FOR PAIN MANAGEMENT. PATIENT WAS REMINDED TO BRING ALL HER MEDICATIONS TO EVERY VISIT. PATIENT WILL NEED TO HAVE THE CERVICAL AND THORACIC MRI DONE PRIOR TO THE DCS TRIAL. PSYCHOLOGICAL EVALUATION WAS REVIEWED. PATIENT WILL RETURN TO THE CLINIC IN 1 MONTH AFTER SHE HAS RECEIVED THE MRI'S. INSTRUCTIONS WERE GIVEN, QUESTIONS WERE ANSWERED, PATIENT REPORTS UNDERSTANDING AND AGREES WITH THE PLAN. I, SELENE DAY, DOCUMENTED THE ABOVE INFORMATION ACTING A SCRIBE FOR DR. MEADOWS. I HAVE REVIEWED THE ABOVE DOCUMENT, WRITTEN BY SELENE CARMONA AND I VERIFY THAT IT IS ACCURATE. PROCEDURES PN WORKMANS' COMP OPINION IN YOUR OPINION, WAS THE INCIDENT THAT THE PATIENT DESCRIBED THE COMPETENT MEDICAL CAUSE OF THIS INJURY/ILLNESS? YES ARE THE PATIENT'S COMPLAINTS CONSISTENT WITH HIS/HER HISTORY OF THE INJURY/ILLNESS? YES IS THE PATIENT'S HISTORY OF THE INJURY/ILLNESS CONSISTENT WITH YOUR OBJECTIVE FINDING? YES WHAT IS THE PERCENTAGE OF TEMPORARY IMPAIRMENT? MARKED = 75% IS THE PATIENT WORKING? NO DOCTOR ON SITE: TAMICA NIÑO MD PROCEDURE CODES FA211 ESTABILISHED PATIENT [facility] FACILITY CHARGE G8427 DOC MEDS VERIFIED W/PT OR RE G8730 PAIN ASSESS POS TOOL F/U PLAN DOC DISPOSITION & COMMUNICATION FOLLOW UP 3 WEEKS ELECTRONICALLY SIGNED BY TAMICA MEADOWS MD ON 01/28/2017 AT 11:13 PM EDT DISCLAIMER : THIS IS A VISIT SUMMARY EXTRACTED FROM THE [employer] CHART. IT IS NOT A COPY OF THE [employer] PROGRESS NOTE. MONICA
== END ==
LOC: M PAIN 15:40
PROVIDERS: ATTEND Anesthesiology
DX: G89.29 Other chronic pain (principal); M25.511 Pain in right shoulder; M71.9 Bursopathy, unspecified; F32.9 Major depressive disorder, single episode, unspecified; J30.9 Allergic rhinitis, unspecified; M19.90 Unspecified osteoarthritis, unspecified site; I10 Essential (primary) hypertension; I25.2 Old myocardial infarction; E11.40 Type 2 diabetes mellitus with diabetic neuropathy, unspecified; E78.00 Pure hypercholesterolemia, unspecified; Z88.8 Allergy status to other drugs, medicaments and biological substances; Z79.84 Long term (current) use of oral hypoglycemic drugs; Z79.82 Long term (current) use of aspirin; Z79.899 Other long term (current) drug therapy; Z87.891 Personal history of nicotine dependence

== ENCOUNTER → 2017-02-27 | Outpatient (CLI) | payer OTHER ==
--- NOTE | 2017-03-05 00:46 | ECWPNPC ---
PATIENT NAME: DELMY CUELLO : 1950 GENDER: FEMALE VISIT DATE: 02/27/2017 DISCHARGE DATE: 02/27/17 1719 VISIT LOCKED DATE TIME: PHYSICIAN: TAMICA MEADOWS PHYSICIAN PAGER NO: [phone] RESOURCE: TAMICA MEADOWS REASON FOR APPOINTMENT 1. WC RIGHT SHOULDER PAIN HISTORY OF PRESENT ILLNESS HISTORY OF PRESENT ILLNESS: PAIN THE PATIENT DESCRIBES THE PAIN... 66 YEAR OLD MALE PATIENT WITH HISTORY OF RIGHT SHOULDER PAIN. PATIENT DESCRIBES THE PAIN SHARP AND SORE WITH THE PAIN COMING AND GOING WITH A PAIN SCORE OF 4/10.PATIENT WAS IN A WORK RELATED INJURY ON 07/21/2009 WHEN SHE FELL AT WORK AND A RESULT HAS HAD FOUR SHOULDER SURGERIES. PATIENT STATES THAT ON THE 3RD SURGERIES. PATIENT REPORTS THAT SHE HAS TRIED PHYSICAL THERAPY IN THE PAST WITHOUT ANY IMPROVEMENTS IN MOBILITY AND FUNCTIONAL OR A DECREASE IN PAIN. PATIENT STATES THAT USING VOLTAREN GEL HELPS WITH THE PAIN ON THE RIGHT SHOULDER. PATIENT HAS RECEIVED MRI'S WELL THE PSYCHOLOGICAL EVALUATION AND WOULD LIKE TO PROCEED WITH SCS AT THIS TIME. PATIENT DENIES UNEXPLAINABLE WEIGHT LOSS, FEVER, CHILLS, NEW CHANGES ON HER URINARY OR BOWEL CONTROL. FALL RISK SCREENING: SCREENING :NO FALLS IN THE PAST YEAR CURRENT MEDICATIONS TAKING ZETIA 10 MG TABLET 1 TABLET ONCE A DAY ORALLY 90 DAY(S) TAKING VOLTAREN 1 % GEL DIRECTED TRANSDERMAL QID PRN FOR PAIN TAKING FISH OIL 1000 MG CAPSULE 1 CAPSULE ORALLY TWICE A DAY TAKING GABAPENTIN 300 300 MG TABLET 1 TAB(S) P.O. THREE TIMES A DAY TAKING HYDROCODONE-ACETAMINOPHEN 5-325 MG TABLET 1 TABLET NEEDED ORALLY THREE X DAILY TAKING CALCIUM 600 + D 600-400 MG-UNIT TABLET OTC 1 TABLET ORALLY TWICE A DAY TAKING ACCU-CHEK ACTIVE CARE KIT 1 .. METER SUBCUTANEOUSLY DIRECTED TAKING ACCU-CHEK ACTIVE -- STRIP DIRECTED SUBCUTANEOUSLY DAILY NEEDED TAKING JANUVIA 100 MG TABLET 1 TABLET ORALLY ONCE A DAY TAKING METFORMIN HCL 850 MG TABLET 1 TABLET WITH A MEAL ORALLY TID TAKING BASAGLAR KWIKPEN 100 UNIT/ML SOLUTION PEN-INJECTOR 20 UNITS SUBCUTANEOUS DAILY TAKING PEN NEEDLES 1/2" 29G X 12MM MISCELLANEOUS 100 SUBCUTANEOUSLY DAILY TAKING MULTIVITAMINS OTC TABLET 2 TABLET ORALLY ONCE A DAY TAKING VITAMIN D 1000 UNIT TABLET OTC 1 TABLET ORALLY ONCE A DAY TAKING ASPIRIN 81 MG TABLET 1 TABLET ORALLY ONCE A DAY TAKING PRAVASTATIN SODIUM 40 MG TABLET 1 TABLET ORALLY ONCE A DAY TAKING KLOR-CON 10 10 MEQ TABLET EXTENDED RELEASE 1 TAB ORALLY DAILY TAKING AMBIEN 10 MG TABLET 1 TABLET AT BEDTIME ORALLY QHS, PRN SLEEP, MDD=ONE, NOTES: REFERENCE #: [id number] TAKING GLUCOMETER DIRECTED DX E11.9 DAILY TAKING BLOOD GLUCOSE TEST - STRIP 1 STRIP IN VITRO DX E11.9 ONCE DAILY TAKING JARDIANCE 25 MG TABLET 1 TABLET ORALLY ONCE A DAY TAKING MAGNESIUM 250 MG 1 TABLET ONCE DAILY NOT-TAKING VITAMIN E 400 UNIT CAPSULE 1 CAP(S) ORALLY ONCE A DAY NOT-TAKING VITAMIN B COMPLEX OTC CAPSULE 2 CAP(S) ORALLY ONCE A DAY PAST MEDICAL HISTORY PMB/PELVIC PAIN CHRONIC DRY EYE DEPRESSION ALLERGIC RHINITIS OSTEOARTHRITIS CVA WITH MEMORY EFFECT RESIDUAL, ABOUT 2005. 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 CONSTITUTIONAL: ANY CHANGE IN YOUR MEDICAL CONDITION? NO . CHILLS NO . FEVER NO . INFECTION: DO YOU HAVE NEW INFECTIONS? NO . DO YOU HAVE HISTORY OF MRSA? NO . MUSCULOSKELETAL: ANY NEW PATTERNS OF PAIN OR NUMBNESS? NO . GASTROENTEROLOGY: ANY NEW CHANGE IN BOWEL CONTROL? NO . GENITOURINARY: ANY NEW CHANGE IN BLADDER CONTROL? NO . IS THERE A CHANCE YOU COULD BE ? NO . HEMATOLOGY/LYMPH: DO YOU TAKE ANY BLOOD THINNERS? (FOR EXAMPLE- COUMADIN, PLAVIX, AGGRENOX, PLATEL, PRADAXA, OR XARELTO) NO . WHEN WAS YOUR LAST DOSE? DATE: TIME: . NEUROLOGY: HAVE YOU FALLEN IN THE PAST 6 MONTHS? NO . ANY NEW EXTREMITY NUMBNESS OR WEAKNESS? NO . CARDIOLOGY: DO YOU HAVE A PACEMAKER OR DEFIBRILLATOR? NO . RESPIRATORY: HAVE YOU BEEN SICK IN THE PAST WEEK? NO . FEVER NO . FLU LIKE SYMPTOMS? NO . COUGH NO . INTEGUMENTARY: DO YOU HAVE ANY RASHES OR OPEN SORES? NO . ALLERGIC/IMMUNO: ARE YOU ALLERGIC TO SHELLFISH OR IV DYE? NO . ANY NEW ALLERGIES? YES LIPITOR RASH . PSYCHIATRIC: DO YOU HAVE THOUGHTS OF HURTING YOURSELF OR SOMEONE ELSE? NO . ARE YOU ABUSED, NEGLECTED, OR IN AN UNSAFE ENVIRONMENT? NO . ENDOCRINOLOGY: ARE YOU DIABETIC? YES . OTHER: DO YOU NEED ANY PRESCRIPTIONS? NO . IF YES, PLEASE LIST: ____ . ANY NEW PROBLEMS WITH YOUR MEDICATIONS? NO . WHEN DID YOU LAST EAT? ____ . WHEN DID YOU LAST DRINK? ____ . WHAT DID YOU LAST DRINK? ____ . NAME OF PERSON DRIVING YOU HOME? ____ . DO YOU HAVE ANY OTHER QUESTIONS OR CONCERNS NO . VITAL SIGNS WT 174 LBS, HT 66.75 IN, BMI 27.45 INDEX, BP 142/66 MM HG, HR 84 /MIN, RR 18 /MIN, TEMP 97.7 F, OXYGEN SAT % 94%, NA INITIALS SC 14:29. EXAMINATION : PATIENT IS ALERT O X 3 AND COOPERATIVE. PATIENT IS ABLE TO ABDUCT HER LEFT ARM, BUT THE ARM ONLY TO 45 DEGREES WITH DISCOMFORT. PATIENT RIGHT ARM IS WEAKER AT FLEXION AND EXTENSION COMPARED TO THE LEFT ARM. HAND SAND WHEELER IS WEAKER ON THE RIGHT COMPARED TO THE LEFT. 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 TREATMENT PAIN IN RIGHT SHOULDER NOTES: WE DISCUSSED SEVERAL ISSUES WITH MRS. CUELLO'S PAIN MANAGEMENT CASE. AT THIS TIME THE PATIENT WILL CONTINUE WITH THE SAME MEDICATION REGIME BEFORE. I WOULD LIKE TO SPEAK WITH THE RADIOLOGIST ABOUT THE CERVICAL AND THORACIC MRI TO MAKE SURE THERE IS ENOUGH ROOM FOR THE SCS LEADS TO PASS THROUGH. I HAVE REVIEW THE PSYCHOLOGICAL EVALUATION. PATIENT IS AWARE SHE WILL NEED TO STOP ANY BLOOD THINNERS AND NSAID'S 10 DAYS PRIOR TO THE TRIAL. PATIENT IS AWARE SHE WILL NEED A CLEARANCE FROM HER PRIMARY TO MOVE FORWARD WITH THE DCS TRIAL. WE DISCUSSED THE RISKS, BENEFITS, AND ALTERNATIVES OF THE DCS AND THE PATIENT WOULD LIKE TO PROCEED AT THIS TIME. INSTRUCTIONS WERE GIVEN, QUESTIONS WERE ANSWERED, PATIENT REPORTS UNDERSTANDING AND AGREES WITH THE PLAN. I, SELENE DAY, DOCUMENTED THE ABOVE INFORMATION ACTING A SCRIBE FOR DR. MEADOWS. I HAVE REVIEWED THE ABOVE DOCUMENT, WRITTEN BY SELENE CARMONA AND I VERIFY THAT IT IS ACCURATE. PROCEDURE CODES FA211 ESTABILISHED PATIENT [facility] CHARGE G8427 DOC MEDS VERIFIED W/PT OR RE G1430 PAIN ASSESS POS TOOL F/U PLAN DOC DISPOSITION & COMMUNICATION FOLLOW UP 2 WEEKS ELECTRONICALLY SIGNED BY TAMICA MEADOWS MD ON 03/04/2017 AT 07:09 PM EDT DISCLAIMER : THIS IS A VISIT SUMMARY EXTRACTED FROM THE [employer] CHART. IT IS NOT A COPY OF THE [employer] PROGRESS NOTE. MTDD
== END ==
LOC: M PAIN 14:30
PROVIDERS: ATTEND Anesthesiology
DX: M25.511 Pain in right shoulder (principal); I10 Essential (primary) hypertension; G89.29 Other chronic pain; E78.00 Pure hypercholesterolemia, unspecified; E11.40 Type 2 diabetes mellitus with diabetic neuropathy, unspecified; Z79.84 Long term (current) use of oral hypoglycemic drugs; Z79.82 Long term (current) use of aspirin; Z79.891 Long term (current) use of opiate analgesic; Z79.899 Other long term (current) drug therapy; Z88.8 Allergy status to other drugs, medicaments and biological substances; J30.9 Allergic rhinitis, unspecified

== ENCOUNTER → 2017-03-13 | Outpatient (CLI) | payer OTHER ==
--- NOTE | 2017-03-19 00:30 | ECWPNPC ---
PATIENT NAME: DELMY CUELLO : 1950 GENDER: FEMALE VISIT DATE: 03/13/2017 DISCHARGE DATE: 03/13/17 1544 VISIT LOCKED DATE TIME: PHYSICIAN: TAMICA MEADOWS PHYSICIAN PAGER NO: [phone] RESOURCE: TAMICA MEADOWS REASON FOR APPOINTMENT 1. RIGHT SHOULDER PAIN W/C HISTORY OF PRESENT ILLNESS HISTORY OF PRESENT ILLNESS: PAIN THE PATIENT DESCRIBES THE PAIN... 66 YEAR OLD MALE PATIENT WITH HISTORY OF RIGHT SHOULDER PAIN. PATIENT DESCRIBES THE PAIN SHARP AND SORE WITH THE PAIN COMING AND GOING WITH A PAIN SCORE OF 4/10. PATIENT WAS IN A WORK RELATED INJURY ON 07/21/2009 WHEN SHE FELL AT WORK AND A RESULT HAS HAD FOUR SHOULDER SURGERIES. PATIENT STATES THAT ON THE 3RD SURGERIES. PATIENT REPORTS THAT SHE HAS TRIED PHYSICAL THERAPY IN THE PAST WITHOUT ANY IMPROVEMENTS IN MOBILITY AND FUNCTIONAL OR A DECREASE IN PAIN. PATIENT STATES THAT USING VOLTAREN GEL HELPS WITH THE PAIN ON THE RIGHT SHOULDER. PATIENT HAS RECEIVED MRI'S WELL THE PSYCHOLOGICAL EVALUATION AND WOULD LIKE TO PROCEED WITH SCS WITH INFOGRAPHIQS AT THIS TIME. PATIENT DENIES UNEXPLAINABLE WEIGHT LOSS, FEVER, CHILLS, NEW CHANGES ON HER URINARY OR BOWEL CONTROL. FALL RISK SCREENING: SCREENING :NO FALLS IN THE PAST YEAR CURRENT MEDICATIONS TAKING VOLTAREN 1 % GEL DIRECTED TRANSDERMAL QID PRN FOR PAIN TAKING FISH OIL 1000 MG CAPSULE 1 CAPSULE ORALLY TWICE A DAY TAKING GABAPENTIN 300 300 MG TABLET 1 TAB(S) P.O. THREE TIMES A DAY TAKING HYDROCODONE-ACETAMINOPHEN 5-325 MG TABLET 1 TABLET NEEDED ORALLY THREE X DAILY TAKING CALCIUM 600 + D 600-400 MG-UNIT TABLET OTC 1 TABLET ORALLY TWICE A DAY TAKING ACCU-CHEK ACTIVE CARE KIT 1 .. METER SUBCUTANEOUSLY DIRECTED TAKING ACCU-CHEK ACTIVE -- STRIP DIRECTED SUBCUTANEOUSLY DAILY NEEDED TAKING METFORMIN HCL 850 MG TABLET 1 TABLET WITH A MEAL ORALLY TID TAKING BASAGLAR KWIKPEN 100 UNIT/ML SOLUTION PEN-INJECTOR 20 UNITS SUBCUTANEOUS DAILY TAKING PEN NEEDLES 1/2" 29G X 12MM MISCELLANEOUS 100 SUBCUTANEOUSLY DAILY TAKING VITAMIN D 1000 UNIT TABLET OTC 1 TABLET ORALLY ONCE A DAY TAKING ASPIRIN 81 MG TABLET 1 TABLET ORALLY ONCE A DAY TAKING PRAVASTATIN SODIUM 40 MG TABLET 1 TABLET ORALLY ONCE A DAY TAKING KLOR-CON 10 10 MEQ TABLET EXTENDED RELEASE 1 TAB ORALLY DAILY TAKING GLUCOMETER DIRECTED DX E11.9 DAILY TAKING BLOOD GLUCOSE TEST - STRIP 1 STRIP IN VITRO DX E11.9 ONCE DAILY TAKING JARDIANCE 25 MG TABLET 1 TABLET ORALLY ONCE A DAY TAKING MAGNESIUM 250 MG 1 TABLET ONCE DAILY TAKING MAGNESIUM 400 MG TABLET 1 TABLET ORALLY DAILY TAKING MULTIVITAMINS OTC TABLET 2 TABLET ORALLY ONCE A DAY TAKING AMBIEN 10 MG TABLET 1 TABLET AT BEDTIME ORALLY QHS, PRN SLEEP, MDD=ONE, NOTES: REFERENCE #: [id number] TAKING JANUVIA 100 MG TABLET 1 TABLET ORALLY ONCE A DAY TAKING ZETIA 10 MG TABLET 1 TABLET ONCE A DAY ORALLY 90 DAY(S) ORALLY ONCE A DAY TAKING GABAPENTIN 300 MG CAPSULE 1 CAPSULE ORALLY THREE TIMES A DAY NOT-TAKING FARXIGA 10 MG TABLET 1 TABLET ORALLY ONCE A DAY NOT-TAKING VITAMIN E 400 UNIT CAPSULE 1 CAP(S) ORALLY ONCE A DAY NOT-TAKING VITAMIN B COMPLEX OTC CAPSULE 2 CAP(S) ORALLY ONCE A DAY MEDICATION LIST REVIEWED AND RECONCILED WITH THE PATIENT PAST MEDICAL HISTORY PMB/PELVIC PAIN CHRONIC DRY EYE DEPRESSION ALLERGIC RHINITIS OSTEOARTHRITIS CVA WITH MEMORY EFFECT RESIDUAL, ABOUT 2005. 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 SKIN 2011 LIPOSUCTION BELLY FAT TAKEN OFF HYSTEROSCOPY, D&C WITH DR. CUNNINGHAM JUN 2011 EYE PLUGS INSERTED FOR DRY EYE MAY 2012 ROTATOR CUFF RIGHT SHOULDER 04/17/2013 SHOULDER SURGERY RIGHT DUE TO NONHODKINS LYMPOMA X3 03/2014 RIGHT SHOULDER SURGERY 2015 HYSTERECTOMY 2016 COLONOSCOPY 05/08/2015 HOSPITALIZATION/MAJOR DIAGNOSTIC PROCEDURE SURGERY RELATED REVIEW OF SYSTEMS REVIEWED BY: PROVIDER: TAMICA MEADOWS MD . CONSTITUTIONAL: ANY CHANGE IN YOUR MEDICAL CONDITION? NO . CHILLS NO . FEVER NO . INFECTION: DO YOU HAVE NEW INFECTIONS? NO . DO YOU HAVE HISTORY OF MRSA? NO . MUSCULOSKELETAL: ANY NEW PATTERNS OF PAIN OR NUMBNESS? NO . GASTROENTEROLOGY: ANY NEW CHANGE IN BOWEL CONTROL? NO . GENITOURINARY: ANY NEW CHANGE IN BLADDER CONTROL? NO . IS THERE A CHANCE YOU COULD BE ? NO . HEMATOLOGY/LYMPH: DO YOU TAKE ANY BLOOD THINNERS? (FOR EXAMPLE- COUMADIN, PLAVIX, AGGRENOX, PLATEL, PRADAXA, OR XARELTO) NO . WHEN WAS YOUR LAST DOSE? DATE: TIME: . NEUROLOGY: HAVE YOU FALLEN IN THE PAST 6 MONTHS? NO . ANY NEW EXTREMITY NUMBNESS OR WEAKNESS? NO . CARDIOLOGY: DO YOU HAVE A PACEMAKER OR DEFIBRILLATOR? NO . RESPIRATORY: HAVE YOU BEEN SICK IN THE PAST WEEK? NO . FEVER NO . FLU LIKE SYMPTOMS? NO . COUGH NO . INTEGUMENTARY: DO YOU HAVE ANY RASHES OR OPEN SORES? NO . ALLERGIC/IMMUNO: ARE YOU ALLERGIC TO SHELLFISH OR IV DYE? NO . ANY NEW ALLERGIES? NO . PSYCHIATRIC: DO YOU HAVE THOUGHTS OF HURTING YOURSELF OR SOMEONE ELSE? NO . ARE YOU ABUSED, NEGLECTED, OR IN AN UNSAFE ENVIRONMENT? NO . ENDOCRINOLOGY: ARE YOU DIABETIC? YES . OTHER: DO YOU NEED ANY PRESCRIPTIONS? YES, VOLTAREN GEL . IF YES, PLEASE LIST: ____ . ANY NEW PROBLEMS WITH YOUR MEDICATIONS? NO . WHEN DID YOU LAST EAT? ____ . WHEN DID YOU LAST DRINK? ____ . WHAT DID YOU LAST DRINK? ____ . NAME OF PERSON DRIVING YOU HOME? ____ . DO YOU HAVE ANY OTHER QUESTIONS OR CONCERNS NO . VITAL SIGNS WT 178.8 LBS, HT 66.75 IN, BMI 28.21 INDEX, BP 173/78 MM HG, HR 77 /MIN, RR 18 /MIN, TEMP 97.1 F, OXYGEN SAT % 97%, NA INITIALS SC 13:51, REVIEWED BY: EM. EXAMINATION : PATIENT IS ALERT O X 3 AND COOPERATIVE. PATIENT IS ABLE TO ABDUCT HER LEFT ARM, BUT THE ARM ONLY TO 45 DEGREES WITH DISCOMFORT. PATIENT RIGHT ARM IS WEAKER AT FLEXION AND EXTENSION COMPARED TO THE LEFT ARM. 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 ASSESSMENTS PAIN IN RIGHT SHOULDER - M25.511 (PRIMARY) DISORDER OF BURSAE AND TENDONS IN SHOULDER REGIONRIGHT SHOULDER NEUROPATHY. TREATMENT PAIN IN RIGHT SHOULDER NOTES: WE DISCUSSED SEVERAL ISSUES WITH MRS. CUELLO'S PAIN MANAGEMENT CASE. AT THIS TIME THE PATIENT WILL CONTINUE WITH THE SAME MEDICATION REGIME BEFORE. PATIENT WILL ALSO RECEIVE A ANTIBIOTIC THAT WILL BE USED AFTER THE PATIENT RETURNS HOME FROM THE HOSPITAL. WE FURTHER DISCUSSED THE DCS TRIAL AND THE PATIENT WOULD LIKE TO PROCEED AT THIS TIME. PATIENT WILL RETURN TO THE CLINIC IN A WEEK LATER TO RECEIVE A LEAD PULL AND TO DISCUSS HOW THE DCS WORKED. PATIENT IS AWARE TO STOP ANY IBUPROFEN OR NSAID'S 10 DAYS PRIOR TO THE INJECTION. PATIENT WAS ALSO ADVISED TO STOP ALL PAIN MEDICATIONS DURING THE TRIAL AND PATIENT STATES SHE UNDERSTANDS. INSTRUCTIONS WERE GIVEN, QUESTIONS WERE ANSWERED, PATIENT REPORTS UNDERSTANDING AND AGREES WITH THE PLAN. I, SELENE DAY, DOCUMENTED THE ABOVE INFORMATION ACTING A SCRIBE FOR DR. MEADOWS. I HAVE REVIEWED THE ABOVE DOCUMENT, WRITTEN BY SELENE CARMONA AND I VERIFY THAT IT IS ACCURATE. OTHERS START CEPHALEXIN TABLET, 500 MG, 1 TABLET, ORALLY, THREE TIMES DAILY MDD3, 10 DAY(S), 30, REFILLS 0 PROCEDURES PN WORKMANS' COMP OPINION IN YOUR OPINION, WAS THE INCIDENT THAT THE PATIENT DESCRIBED THE COMPETENT MEDICAL CAUSE OF THIS INJURY/ILLNESS? YES ARE THE PATIENT'S COMPLAINTS CONSISTENT WITH HIS/HER HISTORY OF THE INJURY/ILLNESS? YES IS THE PATIENT'S HISTORY OF THE INJURY/ILLNESS CONSISTENT WITH YOUR OBJECTIVE FINDING? YES WHAT IS THE PERCENTAGE OF TEMPORARY IMPAIRMENT? MARKED = 75% IS THE PATIENT WORKING? NO DOCTOR ON SITE: TAMICA NIÑO MD PROCEDURE CODES FA211 ESTABILISHED PATIENT [facility] FACILITY CHARGE G8427 DOC MEDS VERIFIED W/PT OR RE G8730 PAIN ASSESS POS TOOL F/U PLAN DOC DISPOSITION & COMMUNICATION FOLLOW UP 3 WEEKS ELECTRONICALLY SIGNED BY TAMICA MEADOWS MD ON 03/18/2017 AT 08:50 PM EDT DISCLAIMER : THIS IS A VISIT SUMMARY EXTRACTED FROM THE [employer] CHART. IT IS NOT A COPY OF THE [employer] PROGRESS NOTE. MONICA
== END ==
LOC: M PAIN 14:00
PROVIDERS: ATTEND Anesthesiology
DX: G89.29 Other chronic pain (principal); M25.511 Pain in right shoulder; I10 Essential (primary) hypertension; E78.00 Pure hypercholesterolemia, unspecified; E11.8 Type 2 diabetes mellitus with unspecified complications; J30.89 Other allergic rhinitis; Z88.8 Allergy status to other drugs, medicaments and biological substances; Z79.1 Long term (current) use of non-steroidal anti-inflammatories (NSAID); Z79.84 Long term (current) use of oral hypoglycemic drugs; Z79.82 Long term (current) use of aspirin; Z79.899 Other long term (current) drug therapy

== ENCOUNTER → 2017-03-27 | Outpatient (REF) | payer MEDICARE, OTHER ==
[2017-03-27 12:53] LABS: MEAN CORPUSCULAR HEMOGLOBIN 28.6 pg (27.0-33.0); MEAN CORPUSCULAR HGB CONC 32.3 g/dl (32.0-36.5); MEAN CORPUSCULAR VOLUME 88.8 fl (80.0-96.0); RED CELL DISTRIBUTION WIDTH 12.9 % (11.5-14.5); WHITE BLOOD COUNT 4.1 10^3/uL (4.0-10.0)
[2017-03-27 14:30] LABS: ALBUMIN 4.1 GM/DL (3.2-5.2); ALBUMIN/GLOBULIN RATIO 1.03 (1.00-1.93); ALKALINE PHOSPHATASE 78 U/L (45-117); ALT/SGPT 65 U/L (12-78); ANION GAP 7 MEQ/L (8-16); AST/SGOT 32 U/L (15-37); BILIRUBIN,TOTAL 0.3 MG/DL (0.2-1.0); BLOOD UREA NITROGEN 19 MG/DL (7-18); CALCIUM LEVEL 9.7 MG/DL (8.8-10.2); CARBON DIOXIDE LEVEL 30 MEQ/L (21-32); CHLORIDE LEVEL 102 MEQ/L (98-107); CHOLESTEROL LEVEL 158 MG/DL (<200); CREATININE FOR GFR 0.88 MG/DL (0.55-1.02); GLOMERULAR FILTRATION RATE > 60.0 (>45); GLUCOSE, FASTING 161 MG/DL (80-110); POTASSIUM SERUM 4.3 MEQ/L (3.5-5.1); SODIUM LEVEL 139 MEQ/L (136-145); TOTAL PROTEIN 8.1 GM/DL (6.4-8.2); TRIGLYCERIDES LEVEL 280 MG/DL (<150)
== END ==
LOC: M SFHCCLAY 07:33
PROVIDERS: ATTEND Nurse Practitioner
DX: Z01.818 Encounter for other preprocedural examination (principal); E11.40 Type 2 diabetes mellitus with diabetic neuropathy, unspecified

== ENCOUNTER 2017-03-31 06:53 | Day surgery (SDC) | payer OTHER ==
[~2017-03-31] VITALS: Ht 167.6 cm; Wt 80.7 kg
[2017-03-31] VITALS (8 sets, daily range): BP systolic 132–214; BP diastolic 71–96
[2017-03-31] MEDS ORDERED: LR 1,000 ML IV ONE (07:00)
[2017-03-31] MEDS ORDERED: MIDAZOLAM INJ 2 MG/2 ML VIAL (J2250) As Ordered ONE (07:35)
[2017-03-31] MEDS ORDERED: fentaNYL 100 MCG/2 ML INJECTION (J3010) As Ordered ONE ×3 (07:35→11:17)
[2017-03-31] MEDS ORDERED: BUPIVACAINE HCL 0.25% 30 ML VIAL As Ordered ONE (08:00)
[2017-03-31] MEDS ORDERED: ISOVUE-300 61% 50ML VIAL (Q9967) As Ordered ONE (08:00)
[2017-03-31] MEDS ORDERED: LIDOCAINE W/EPINEPHRINE 1% 20ML VIAL As Ordered ONE ×2 (08:00→09:21)
[2017-03-31] MEDS ORDERED: HumaLOG INSULIN (NovoLOG) PER UNIT SC ONE ×2 (08:15→11:45)
--- NOTE | 2017-03-31 11:13 | REP ---
PARTIAL CERVICAL SPINE SERIES: Three views. HISTORY: Pain. 7 minutes 43 seconds of fluoroscopy time is reported. FINDINGS: A sequence of three last image hold spot radiographs of the cervical spine document dorsal column stimulator lead position. Signed by Fco Collado MD 03/31/2017 01:19 P
[2017-03-31] MEDS ORDERED: PERCOCET 5MG/325MG TAB As Ordered ONE (11:17)
[2017-03-31] MEDS ORDERED: ONDANSETRON 4MG/2ML VIAL (J2405) As Ordered ONE (11:18)
[2017-03-31] MEDS: fentaNYL 100 MCG/2 ML INJECTION (J3010) IV PRN ×4 (11:22→11:40)
[2017-03-31] MEDS: PERCOCET 5MG/325MG TAB PO PRN ×2 (11:22→11:55)
[2017-03-31] MEDS ORDERED: ONDANSETRON 4MG/2ML VIAL (J2405) IV PRN (11:30)
[2017-03-31] MEDS ORDERED: LR 1,000 ML IV SCH (11:30)
[2017-03-31] MEDS ORDERED: HumaLOG INSULIN (NovoLOG) PER UNIT SC SCH ×3 (12:00→21:00)
[2017-03-31] MEDS: HYDROmorphone HCL 1 MG/ML SYRINGE (J1170) IV PRN ×5 (12:10→12:34)
[2017-03-31] MEDS: NORCO, ANEXSIA 5/325MG TABLET (HYDROcodone/ACETAMINOPHEN) PO PRN ×3 (14:13→22:32)
[2017-03-31] MEDS ORDERED: GLUCAGON FOR INJ 1 MG VIAL (J1610) SC PRN (15:45)
[2017-03-31] MEDS ORDERED: DEXTROSE 50% 50 ML SYRINGE IV PRN (15:45)
[2017-03-31] MEDS ORDERED: GLUCOSE 4 GM CHEW TABLET PO PRN (15:45)
--- NOTE | 2017-03-31 15:47 | CR.PDOC ---
[facility] Consultation Consultation DATE OF CONSULTATION: Mar 31, 2017 at 06:53 REFERRING PROVIDER: Red Malloy M.D. ATTENDING PHYSICIAN: Dr. Carroll REASON FOR CONSULTATION/CHIEF COMPLAINT: . 66-year-old female past medical history of hypertension, dyslipidemia, diabetes , osteoarthritis, depression, peripheral neuropathy, and chronic pain of the right shoulder was admitted to [facility] for a dorsal stimulator trial. The medicine team has been consulted to aid in the medical management of the patient's chronic comorbidities. ALLERGIES: Please see below. HOME MEDICATIONS: Please see below. PAST MEDICAL HISTORY: As noted above PAST SURGICAL HISTORY: MALIGNANT MELANOMA NOSE 2010 ROTATOR CUFF RIGHT SHOULDER 2009+2010 CYST REMOVED LEFT ARM 2006 CARPEL TUNNEL BILATERAL 1996 TIPPED BLADDER 2002 D & C 2002 COLONOSCOPY 2002 REMOVAL OF EXCESS ABD. SKIN 2011 LIPOSUCTION BELLY FAT TAKEN OFF HYSTEROSCOPY, D&C WITH DR. CUNNINGHAM JUN 2011 EYE PLUGS INSERTED FOR DRY EYE MAY 2012 ROTATOR CUFF RIGHT SHOULDER 04/17/2013 SHOULDER SURGERY RIGHT DUE TO NONHODKINS LYMPOMA X3 03/2014 RIGHT SHOULDER SURGERY 2014 HYSTERECTOMY 2016 COLONOSCOPY 05/08/2015 REVIEW OF SYSTEMS: 10 point review of systems negative unless otherwise specified HPI. PHYSICAL EXAMINATION: VITAL SIGNS: Please see below. GENERAL APPEARANCE: . Awake, alert, oriented HEENT: . Normocephalic, atraumatic RESPIRATORY: . Clear to auscultation bilaterally CARDIOVASCULAR: . Normal rate, normal S1, S2 ABDOMEN: . Soft, nontender, nondistended EXTREMITIES: . No erythema, no swelling LABORATORY DATA: Please see below. ASSESSMENT/PLAN: Chronic Right Shoulder Pain s/p Dorsal Stimulator Trial Pain mgmt as per primary team Diabetes mellitus Insulin sliding scale Peripheral neuropathy Continue gabapentin Dyslipidemia Continue statin Vitamin Deficiency Continue supplementation Vital Signs/I&O Vital Signs Date Time Temp Pulse Resp B/P (MAP) Pulse Ox O2 Delivery O2 Flow Rate FiO2 03/31/17 14:43 12 03/31/17 14:15 70 158/78 (104) 97 Room Air 03/31/17 12:32 96.7 03/31/17 12:01 3 I&O- Last 24 Hours up to 6 AM 04/01/17 06:00 Intake Total 1480 ml Output Total 505 ml Balance 975 ml Laboratory Data Labs 24H Laboratory Tests 2 03/31/17 07:27: Bedside Glucose (Misc Panel) 290H 03/31/17 11:16: Bedside Glucose (Misc Panel) 266H Allergies Coded Allergies: Atorvastatin (Verified Allergy, Mild, itching, 03/27/17) Lisinopril (Verified Allergy, Mild, itching, 03/27/17) Pregabalin (Unverified Allergy, Mild, itching, 03/27/17) Home Medications Scheduled (Calcium + D3 600-200 mg-Unit) 1 Tab Tab, 1 TAB PO DAILY, (Reported) (Multivitamin Adults 50+) 1 Tab Tab, 1 TAB PO DAILY, (Reported) (Basaglar Kwikpen) 100 Unit/Ml Inj, 20 UNITS SC QHS, (Reported) Alpha Tocopheryl Acid Succinat (Vitamin E) 400 Unit Tab, 400 UNIT PO DAILY, ( Reported) Aspirin (Aspir-81) 81 Mg Tab, 81 MG PO DAILY, (Reported) B1/B2/B3/B5/B6 (Vitamin B Complex) 1 Tab Tab, 1 TAB PO DAILY, (Reported) Cholecalciferol (Vitamin D3) 1,000 Unit Tab, PO DAILY, (Reported) Cinnamon Bark (Cinnamon) 500 Mg Cap, 1,000 MG PO BID, (Reported) Empagliflozin (Jardiance) 25 Mg Tab, PO DAILY, (Reported) Ezetimibe (Zetia) 10 Mg Tab, 10 MG PO DAILY, (Reported) Fish Oil (Fish Oil 1000 mg) 1 Cap Cap, 1 CAP PO BID, (Reported) Gabapentin (Gabapentin) 300 Mg Cap, 300 MG PO TID, (Reported) Magnesium Oxide (Magnesium) 250 Mg Tab, 250 MG PO DAILY, (Reported) Metformin Hydrochloride (Metformin HCl) 850 Mg Tab, 850 MG PO TID, (Reported) Pravastatin Sod (Pravastatin Sodium) 40 Mg Tab, 40 MG PO DAILY, (Reported) Sitagliptin Phosphate (Januvia) 100 Mg Tab, 100 MG PO DAILY, (Reported) [Fraxiga] , 1 TAB PO DAILY, (Reported) Scheduled PRN Acetaminophen/Hydrocodone (Cumming 5-325 mg) 1 Tab Tab, 2 TAB PO Q4HP PRN for DISCOMFORT, (Reported) Zolpidem Tartrate (Ambien) 10 Mg Tab, 10 MG PO QHSP PRN for SLEEP, (Reported) RED MALLOY MD Mar 31, 2017 15:46
--- NOTE | 2017-03-31 15:51 | IPNPDOC ---
Date Seen The patient was seen on 03/31/17. Progress Note REASON FOR CONSULTATION: Medical Management DATE OF VISIT: 03/31/17 PCP: Naheed De Luna PRINTING ESTIMATOR Attending Dr Shahid. HPI: 66year oldF with a past medical history significant for chronic pain/ chronic Rt Shoulder pain S/P DCS POD [address] Carroll. No acute medical complaints today. Currently Pt states her pain is controlled and she is comfortable. Denies any fevers, chills, weakness, fatigue, Headache, Chest Pain, Shortness of breath, cough, palpitations, abdominal pain, N/V/D or changes in bowel or bladder habits. PMHx/PSHX: PMB/PELVIC PAIN CHRONIC DRY EYE DEPRESSION ALLERGIC RHINITIS OSTEOARTHRITIS CVA WITH MEMORY EFFECT RESIDUAL, ABOUT 2005. 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 SKIN 2011 LIPOSUCTION HYSTEROSCOPY, D&C WITH DR. CUNNINGHAM JUN 2011 EYE PLUGS INSERTED FOR DRY EYE MAY 2012 ROTATOR CUFF RIGHT SHOULDER 04/17/2013 SHOULDER SURGERY RIGHT DUE TO NONHODKINS LYMPOMA X3 03/2014 RIGHT SHOULDER SURGERY 2015 HYSTERECTOMY 2016 COLONOSCOPY 05/08/2015 ROS: As noted in HPI, otherwise 11pt ROS of systems reviewed and unremarkable. PE: GEN: 66yoF, appears stated age. Well-nourished, well developed. No acute distress. Alert and oriented x 3. Pleasant, interactive. HEENT: Normocephalic, atraumatic. Pupils are equal, round, and reactive to light. Extraocular movements are intact. No nystagmus appreciated. Sclera are nonicteric. Conjunctiva without injection. Nose midline. Nasal turbinates without bogginess. No facial asymmetry. Moist mucous membranes. Dentition fair. Pharynx pink and moist, no cobblestoning. Neck supple, trachea midline. No lymphadenopathy or thyromegaly appreciated. CHEST: Regular rate and rhythm, +S1, +S2 LUNGS: Clear to auscultation bilaterally. No wheezes, rales, or rhonchi. Breathing appears symmetric and easy. Patient is speaking in full sentences. No accessory muscle use. ABD: Round, soft, non-tender, non-distended. +Bowel sounds throughout. No rebound or guarding. No costovertebral angle tenderness. EXT: Pulses 2+ bilaterally dorsalis pedis and radial. No lower extremity edema appreciated. SKIN: Rossiter, dry, warm. Capillary refill <2sec. No rashes. NEURO: Alert and oriented x 3. Cranial nerves III-XII are intact. No focal deficits appreciated. A&P: 66year oldF with a past medical history significant for chronic pain/ chronic Rt Shoulder pain S/P DCS POD [address] Carroll. Pt will be folowed by Dr Shahid. Pt is discussed with Dr Watters. 1. Chronic pain/POD [address] Carroll. Post op Mgmt as per Dr Craroll. Pain control as per Dr Carroll. Gabapentin as per Dr Carroll. Restart ASA 81 mg daily when cleared as per Dr Carroll. 2. DM. Hold po meds. SSI. CC diet. AM labs, CBC/CMP/Mag. 3. HLD. Cont statin/zetia. 4. Insomnia. Ambien as per Dr Carroll. Thank you for your consultation. VS, I&O, 24H, Fishbone Vital Signs/I&O Vital Signs Date Time Temp Pulse Resp B/P (MAP) Pulse Ox O2 Delivery O2 Flow Rate FiO2 03/31/17 14:43 12 03/31/17 14:15 70 158/78 (104) 97 Room Air 03/31/17 12:32 96.7 03/31/17 12:01 3 I&O- Last 24 Hours up to 6 AM 04/01/17 06:00 Intake Total 1480 ml Output Total 505 ml Balance 975 ml Laboratory Data 24H LABS Laboratory Tests 2 03/31/17 07:27: Bedside Glucose (Misc Panel) 290H 03/31/17 11:16: Bedside Glucose (Misc Panel) 266H Lian Heart Mar 31, 2017 15:51
[2017-03-31] MEDS: GABAPENTIN 300 MG CAP PO SCH ×2 (16:03→20:11)
[2017-03-31] MEDS: VITAMIN E 400 INTERNATIONAL UNITS CAP PO SCH (16:03)
[2017-03-31] MEDS: OCUVITE 1 TAB PO SCH (16:03)
[2017-03-31] MEDS: EZETIMIBE 10 MG TAB (ZETIA) PO SCH (16:03)
[2017-03-31] MEDS: VITAMIN B COMPLEX/VIT C CAP PO SCH (16:03)
[2017-03-31] MEDS: HumaLOG INSULIN (NovoLOG) PER UNIT SC SCH (17:24)
[2017-03-31] MEDS ORDERED: ANEXSIA, NORCO 7.5MG/325MG TABLET(HYDROCODONE/APAP) PO PRN (20:30)
[2017-03-31] MEDS ORDERED: PRAVASTATIN 20 MG TAB PO SCH (21:00)
[2017-04-01] MEDS: NORCO, ANEXSIA 5/325MG TABLET (HYDROcodone/ACETAMINOPHEN) PO PRN ×2 (04:04→09:16)
[2017-04-01 06:00] VITALS: BP 156/82
[2017-04-01 08:04] LABS: MEAN CORPUSCULAR HEMOGLOBIN 28.6 pg (27.0-33.0); MEAN CORPUSCULAR HGB CONC 32.4 g/dl (32.0-36.5); MEAN CORPUSCULAR VOLUME 88.2 fl (80.0-96.0); RED CELL DISTRIBUTION WIDTH 13.1 % (11.5-14.5); WHITE BLOOD COUNT 5.4 10^3/uL (4.0-10.0)
[2017-04-01 08:27] LABS: ANION GAP 8 MEQ/L (8-16); BLOOD UREA NITROGEN 10 MG/DL (7-18); CALCIUM LEVEL 9.8 MG/DL (8.8-10.2); CARBON DIOXIDE LEVEL 28 MEQ/L (21-32); CHLORIDE LEVEL 100 MEQ/L (98-107); CREATININE FOR GFR 0.88 MG/DL (0.55-1.02); GLOMERULAR FILTRATION RATE > 60.0 (>45); GLUCOSE, FASTING 276 MG/DL (80-110); MAGNESIUM LEVEL 1.7 MG/DL (1.8-2.4); POTASSIUM SERUM 4.1 MEQ/L (3.5-5.1); SODIUM LEVEL 136 MEQ/L (136-145)
[2017-04-01] MEDS: HumaLOG INSULIN (NovoLOG) PER UNIT SC SCH (09:15)
[2017-04-01] MEDS: VITAMIN E 400 INTERNATIONAL UNITS CAP PO SCH (09:15)
[2017-04-01] MEDS: VITAMIN B COMPLEX/VIT C CAP PO SCH (09:15)
[2017-04-01] MEDS: OCUVITE 1 TAB PO SCH (09:16)
[2017-04-01] MEDS: EZETIMIBE 10 MG TAB (ZETIA) PO SCH (09:16)
[2017-04-01] MEDS: GABAPENTIN 300 MG CAP PO SCH (09:16)
--- NOTE | 2017-04-07 10:16 | RO ---
DATE OF PROCEDURE: 03/31/2017 PREPROCEDURE DIAGNOSES: Right shoulder pain, right shoulder neuropathy. POSTPROCEDURE DIAGNOSES: Right shoulder pain, right shoulder neuropathy. PROCEDURE: Spinal column stimulator trial. SURGEON: Logan Jason MD MANAGER PLACEMENT: ANESTHESIA: Local with monitored anesthesia care. PREPROCEDURE NOTE: Ms. Adair is a 66-year-old female patient with history of right shoulder pain. She has suffered of this condition for many years and received different types of interventions, including operations over the right shoulder and medication management. The patient has expressed that she wants to have the spinal column stimulator trial. She denies unexplainable weight loss, fever, chills, changes in her urinary or bowel control. DESCRIPTION OF PROCEDURE: Procedure note: After consent was taken, the patient was brought to the procedure room and placed in the prone position. Cervicothoracic area was cleaned with Betadine solution and draped aseptically. The procedure was done under sterile conditions. The patient received cefazolin 1 gram intravenous (IV). Target point was selected at the interlaminar level of C7-T1. Lidocaine was used to numb the skin and the subcutaneous tissue below. An epidural Tuohy needle, 17 gauge was advanced until the left lamina of T1 was touched; and then, by the loss of resistance technique, the epidural space was reached 6 cm deep into the skin by the loss of resistance technique. A 16 contact lead from [employer] was advanced under fluoroscopic guidance in the posterior and medial aspects of the epidural space until we reached the area of C2, as seen in the AP and lateral views. Decision was made to place a second lead. In this instance the space of T1, T2 was selected. Lidocaine was used to numb the skin and the subcutaneous tissue below it. A second Epimed needle was advanced under fluoroscopic guidance until we touched the left lamina of T2. Then by loss of resistance technique, the epidural space was reached 6 cm deep into the skin by the loss of resistance technique. A second 16 contact lead was advanced through the Tuohy needle and advanced parallel to the first lead until we reached also the area of C2. Position of the leads were verified with AP and lateral views. Extension cables were attached to these leads, which I attached to the computer system of [employer]. I started to do programming. This was a simple 30 minute programming where I changed the position of the leads, the contact use, the voltage used. The final position of the leads were at the level of C2-3, as seen in AP and lateral views. We were using the first few contacts to give stimulation to the patient's shoulder. When the patient was satisfied with the stimulation, I removed the extensions, removed the stylets, and attached the leads to the patient's skin using Steri-Strips. The area was covered with 4x4 and with Tegaderms. The patient was sent to the recovery room. She was moving her extremities and doing well. There were no complication during the procedure. There was no evidence of blood, paresthesias, or cerebrospinal fluid. The trial will be started later today. MONICA
== END 2017-04-01 10:45 | disposition home or self-care (01) ==
LOC: M SDC 06:53 → M MS5PR 12:45 → M SDC 04-01 10:45
PROVIDERS: ATTEND Anesthesiology
DX: M25.511 Pain in right shoulder (principal); G56.91 Unspecified mononeuropathy of right upper limb; E11.21 Type 2 diabetes mellitus with diabetic nephropathy; I10 Essential (primary) hypertension; Z86.73 Personal history of transient ischemic attack (TIA), and cerebral infarction without residual deficits; E78.5 Hyperlipidemia, unspecified; Z79.4 Long term (current) use of insulin; Z79.899 Other long term (current) drug therapy; Z79.82 Long term (current) use of aspirin; Z85.79 Personal history of other malignant neoplasms of lymphoid, hematopoietic and related tissues; K21.9 Gastro-esophageal reflux disease without esophagitis; Z88.8 Allergy status to other drugs, medicaments and biological substances; F32.9 Major depressive disorder, single episode, unspecified; Z87.891 Personal history of nicotine dependence; M79.601 Pain in right arm
CPT/HCPCS: 36415; 63650; 76000; 80048; 83735; 85027; 96365; 96366; C1778; J0690; J1170; J2250; J2405; J3010

== ENCOUNTER → 2017-12-22 | Outpatient (REF) | payer MEDICARE, OTHER ==
[2017-12-22 11:02] LABS: HEMATOCRIT 41.6 % (36.0-47.0); HEMOGLOBIN 13.5 g/dl (12.0-15.5); MEAN CORPUSCULAR HEMOGLOBIN 28.8 pg (27.0-33.0); MEAN CORPUSCULAR HGB CONC 32.5 g/dl (32.0-36.5); MEAN CORPUSCULAR VOLUME 88.7 fl (80.0-96.0); PLATELET COUNT, AUTOMATED 218 10^3/uL (150-450); RED BLOOD COUNT 4.69 10^6/uL (4.00-5.40); RED CELL DISTRIBUTION WIDTH 13.1 % (11.5-14.5); WHITE BLOOD COUNT 4.4 10^3/uL (4.0-10.0)
[2017-12-22 11:24] LABS: ALBUMIN 4.1 GM/DL (3.2-5.2); ALBUMIN/GLOBULIN RATIO 0.98 (1.00-1.93); ALKALINE PHOSPHATASE 90 U/L (45-117); ALT/SGPT 68 U/L (12-78); ANION GAP 10 MEQ/L (8-16); AST/SGOT 38 U/L (7-37); BILIRUBIN,TOTAL 0.3 MG/DL (0.2-1.0); BLOOD UREA NITROGEN 21 MG/DL (7-18); CALCIUM LEVEL 9.7 MG/DL (8.8-10.2); CARBON DIOXIDE LEVEL 28 MEQ/L (21-32); CHLORIDE LEVEL 102 MEQ/L (98-107); CHOLESTEROL LEVEL 190 MG/DL (<200); CREATININE FOR GFR 0.97 MG/DL (0.55-1.30); ESTIMATED AVERAGE GLUCOSE 203 MG/DL (60-110); FREE T4 0.96 NG/DL (0.76-1.46); GLOMERULAR FILTRATION RATE > 60.0 (>45); GLUCOSE, FASTING 170 MG/DL (70-100); HDL CHOLESTEROL 40 MG/DL (>40); HEMOGLOBIN A1c 8.7 %; LDL CHOLESTEROL 78.8 MG/DL (<100); NON-HDL-C 150 MG/DL; POTASSIUM SERUM 4.2 MEQ/L (3.5-5.1); SODIUM LEVEL 140 MEQ/L (136-145); TOTAL PROTEIN 8.3 GM/DL (6.4-8.2); TRIGLYCERIDES LEVEL 356 MG/DL (<150)
== END ==
LOC: M SFHCCLAY 07:59
DX: Z01.818 Encounter for other preprocedural examination (principal); E11.40 Type 2 diabetes mellitus with diabetic neuropathy, unspecified; R53.83 Other fatigue
CPT/HCPCS: 84443

== ENCOUNTER → 2018-11-10 | Outpatient (REF) | payer MEDICARE, OTHER ==
[~2018-11-10] MED LIST changes: -GABA-282 PO; +GABA-843 PO; -HYDR-3781 PO; +HYDR2.5T34 PO; +LOSA25TA14 PO; -LOSA25TA8 PO; -NORC1TAB4 PO; +NORC1TAB7 PO
[2018-11-10 12:51] LABS: BLOOD UREA NITROGEN 16 MG/DL (7-18); CALCIUM LEVEL 9.9 MG/DL (8.8-10.2); CARBON DIOXIDE LEVEL 28 MEQ/L (21-32); CHLORIDE LEVEL 101 MEQ/L (98-107); CREATININE FOR GFR 0.88 MG/DL (0.55-1.30); GLOMERULAR FILTRATION RATE > 60.0 (>45); GLUCOSE, FASTING 207 MG/DL (70-100); POTASSIUM SERUM 4.3 MEQ/L (3.5-5.1); SODIUM LEVEL 137 MEQ/L (136-145)
[2018-11-10 15:31] LABS: HEMOGLOBIN A1c 9.4 %
== END ==
LOC: M SFHCCLAY 08:47
PROVIDERS: ATTEND Family Medicine
DX: E11.8 Type 2 diabetes mellitus with unspecified complications (principal)
CPT/HCPCS: 80048; 83036; G0463

== ENCOUNTER → 2019-02-17 | Outpatient (REF) | payer MEDICARE, OTHER ==
[~2019-02-17] MED LIST changes: +ZETI10TA16 PO; -ZETI10TA30 PO
[2019-02-18 12:33] LABS: BLOOD UREA NITROGEN 16 MG/DL (7-18); CALCIUM LEVEL 10.1 MG/DL (8.8-10.2); CARBON DIOXIDE LEVEL 29 MEQ/L (21-32); CHLORIDE LEVEL 101 MEQ/L (98-107); CHOLESTEROL LEVEL 190 MG/DL (<200); CHOLESTEROL RISK RATIO 5.135 (<5); CREATININE FOR GFR 0.83 MG/DL (0.55-1.30); GLOMERULAR FILTRATION RATE > 60.0 (>45); GLUCOSE, FASTING 289 MG/DL (70-100); HDL CHOLESTEROL 37 MG/DL (>40); NON-HDL-C 153 MG/DL; POTASSIUM SERUM 4.4 MEQ/L (3.5-5.1); SODIUM LEVEL 137 MEQ/L (136-145); TRIGLYCERIDES LEVEL 515 MG/DL (<150)
[2019-02-18 12:54] LABS: CREATININE, URINE 56.6 MG/DL; MAU/CREAT RATIO 307.4 MCG/MG (0.0-30.0)
[2019-02-18 14:04] LABS: HEMOGLOBIN A1c 9.5 %
== END ==
LOC: M SFHCCLAY 14:22
PROVIDERS: ATTEND Family Medicine
DX: E11.9 Type 2 diabetes mellitus without complications (principal)

== ENCOUNTER → 2019-02-24 | Outpatient (REF) | payer MEDICARE, OTHER ==
[2019-02-24 17:07] LABS: ALBUMIN 4.1 GM/DL (3.2-5.2); ALT/SGPT 68 U/L (12-78); BILIRUBIN,TOTAL 0.3 MG/DL (0.2-1.0); BLOOD UREA NITROGEN 17 MG/DL (7-18); CARBON DIOXIDE LEVEL 29 MEQ/L (21-32); CHLORIDE LEVEL 101 MEQ/L (98-107); CHOLESTEROL LEVEL 195 MG/DL (<200); CREATININE FOR GFR 0.88 MG/DL (0.55-1.30); FREE T4 0.93 NG/DL (0.76-1.46); GLOMERULAR FILTRATION RATE > 60.0 (>45); GLUCOSE, FASTING 193 MG/DL (70-100); HDL CHOLESTEROL 37 MG/DL (>40); NON-HDL-C 158 MG/DL; POTASSIUM SERUM 4.4 MEQ/L (3.5-5.1); SODIUM LEVEL 138 MEQ/L (136-145); THYROID STIMULATING HORMONE 0.646 uIU/ML (0.358-3.740); TOTAL PROTEIN 8.4 GM/DL (6.4-8.2); TRIGLYCERIDES LEVEL 439 MG/DL (<150)
[2019-02-24 17:11] LABS: VITAMIN B12 LEVEL 422 PG/ML (247-911)
[2019-02-24 17:13] LABS: FOLATE > 24.0 NG/ML (>5.4)
[2019-02-24 18:39] LABS: HEMOGLOBIN A1c 9.5 %
== END ==
LOC: M SFHCCLAY 12:00
PROVIDERS: ATTEND Family Medicine
DX: E11.9 Type 2 diabetes mellitus without complications (principal); F02.80 Dementia in other diseases classified elsewhere, unspecified severity, without behavioral disturbance, psychotic disturbance, mood disturbance, and anxiety

== ENCOUNTER → 2019-04-06 | Outpatient (REF) | payer MEDICARE, OTHER | LOC: M SFHCCLAY 15:53 | PROVIDERS: ATTEND Family Medicine | DX: J02.9 Acute pharyngitis, unspecified (principal) | CPT/HCPCS: 87070; G0463 ==

== ENCOUNTER → 2019-11-18 | Outpatient (REF) | payer MEDICARE, OTHER ==
[2019-11-18 12:11] LABS: ALBUMIN 4.1 GM/DL (3.2-5.2); ALT/SGPT 91 U/L (12-78); BILIRUBIN,TOTAL 0.3 MG/DL (0.2-1.0); BLOOD UREA NITROGEN 13 MG/DL (7-18); CALCIUM LEVEL 9.8 MG/DL (8.8-10.2); CARBON DIOXIDE LEVEL 28 MEQ/L (21-32); CHLORIDE LEVEL 102 MEQ/L (98-107); CHOLESTEROL LEVEL 175 MG/DL (<200); CHOLESTEROL RISK RATIO 4.375 (<5); CREATININE FOR GFR 0.83 MG/DL (0.55-1.30); GLOMERULAR FILTRATION RATE > 60.0 (>45); GLUCOSE, FASTING 172 MG/DL (70-100); HDL CHOLESTEROL 40 MG/DL (>40); LDL CHOLESTEROL 81 MG/DL (<100); NON-HDL-C 135 MG/DL; POTASSIUM SERUM 4.4 MEQ/L (3.5-5.1); SODIUM LEVEL 137 MEQ/L (136-145); TOTAL PROTEIN 8.1 GM/DL (6.4-8.2); TRIGLYCERIDES LEVEL 272 MG/DL (<150)
[2019-11-18 12:29] LABS: CREATININE, URINE 87.7 MG/DL; MAU/CREAT RATIO 206.3 MCG/MG (0.0-30.0)
[2019-11-18 12:50] LABS: HEMOGLOBIN A1c 8.8 %
== END ==
LOC: M SFHCCLAY 08:42
PROVIDERS: ATTEND Family Medicine
DX: E11.40 Type 2 diabetes mellitus with diabetic neuropathy, unspecified (principal); I10 Essential (primary) hypertension

== ENCOUNTER → 2020-03-03 | Outpatient (REF) | payer MEDICARE, OTHER ==
[~2020-03-03] MED LIST changes: -ASPI81TA85 PO; +ASPI81TA86 PO
[2020-03-03 20:59] LABS: ALT/SGPT 47 U/L (12-78); BILIRUBIN,TOTAL 0.3 MG/DL (0.2-1.0); BLOOD UREA NITROGEN 17 MG/DL (7-18); CALCIUM LEVEL 10.1 MG/DL (8.8-10.2); CARBON DIOXIDE LEVEL 29 MEQ/L (21-32); CHLORIDE LEVEL 104 MEQ/L (98-107); CREATININE FOR GFR 0.93 MG/DL (0.55-1.30); GLOMERULAR FILTRATION RATE > 60.0 (>45); GLUCOSE, FASTING 187 MG/DL (70-100); POTASSIUM SERUM 4.8 MEQ/L (3.5-5.1); SODIUM LEVEL 137 MEQ/L (136-145); TOTAL PROTEIN 8.2 GM/DL (6.4-8.2)
[2020-03-03 22:13] LABS: HEMOGLOBIN A1c 9.5 %
== END ==
LOC: M LABDRAWC 16:53
PROVIDERS: ATTEND Family Medicine
DX: E11.9 Type 2 diabetes mellitus without complications (principal)

== ENCOUNTER → 2020-11-15 | Outpatient (REF) | payer MEDICARE, OTHER ==
[~2020-11-15] MED LIST changes: +GABA-282 PO; -GABA-843 PO
[2020-11-15 18:08] LABS: HEMOGLOBIN A1c 8.6 %
== END ==
LOC: M SFHCCLAY 11:38
PROVIDERS: ATTEND Family Medicine
DX: E11.40 Type 2 diabetes mellitus with diabetic neuropathy, unspecified (principal)
CPT/HCPCS: 83036; G0463

== ENCOUNTER → 2021-02-08 | Outpatient (REF) | payer MEDICARE, OTHER ==
[~2021-02-08] MED LIST changes: +ASPI1CHW3 PO; +DONE10TA90 PO; +FISH1000 PO; +HYDR-3713 PO; +MEMA10TA19 PO; +ONETAB20 PO; +POTA10TA17 PO; +TRUL10IN SC
[2021-02-08 16:54] LABS: BASO # 0.1 10^3/uL (0.0-0.2); BASO % 1.2 % (0.0-1.0); EOS # 0.3 10^3/uL (0.0-0.5); HEMATOCRIT 40.8 % (36.0-47.0); HEMOGLOBIN 13.1 g/dl (12.0-15.5); LYMPH # 2.1 10^3/uL (1.5-5.0); LYMPH % 27.8 % (24.0-44.0); MEAN CORPUSCULAR HEMOGLOBIN 28.6 pg (27.0-33.0); MEAN CORPUSCULAR HGB CONC 32.1 g/dl (32.0-36.5); MEAN CORPUSCULAR VOLUME 89.1 fl (80.0-96.0); MONO # 0.6 10^3/uL (0.0-0.8); MONO % 8.4 % (2.0-8.0); NEUTROPHILS # 4.3 10^3/uL (1.5-8.5); NEUTROPHILS % 58.3 % (36.0-66.0); PLATELET COUNT, AUTOMATED 187 10^3/uL (150-450); RED BLOOD COUNT 4.58 10^6/uL (4.00-5.40); WHITE BLOOD COUNT 7.4 10^3/uL (4.0-10.0)
[2021-02-08 17:23] LABS: ALBUMIN 3.8 GM/DL (3.2-5.2); ALT/SGPT 45 U/L (12-78); BILIRUBIN,TOTAL 0.3 MG/DL (0.2-1.0); BLOOD UREA NITROGEN 11 MG/DL (7-18); C REACTIVE PROTEIN QUANTITATIV 0.44 MG/DL (0.00-0.30); CALCIUM LEVEL 9.6 MG/DL (8.8-10.2); CARBON DIOXIDE LEVEL 28 MEQ/L (21-32); CHLORIDE LEVEL 103 MEQ/L (98-107); FREE T4 0.91 NG/DL (0.76-1.46); GLOMERULAR FILTRATION RATE > 60.0 (>45); GLUCOSE, FASTING 183 MG/DL (70-100); POTASSIUM SERUM 4.3 MEQ/L (3.5-5.1); SODIUM LEVEL 138 MEQ/L (136-145); THYROID STIMULATING HORMONE 0.558 uIU/ML (0.358-3.740); TOTAL PROTEIN 8.3 GM/DL (6.4-8.2)
[2021-02-08 17:42] LABS: ERYTHROCYTE SEDIMENTATION RATE 39 mm/hr (0-30)
== END ==
LOC: M SFHCCLAY 11:04
PROVIDERS: ATTEND Physician Assistant
DX: R59.9 Enlarged lymph nodes, unspecified (principal); Z79.899 Other long term (current) drug therapy
CPT/HCPCS: 80053; 84439; 84443; 85025; 85652; 86140; G0463

== ENCOUNTER → 2021-03-05 | Outpatient (CLI) | payer MEDICARE, OTHER ==
--- NOTE | 2021-03-06 09:55 | REP ---
INDICATION: RESTAGING LYMPHOMA. COMPARISON: 06/13/2014 the latest prior. No prior CT examinations for comparison TECHNIQUE: After the intravenous administration of 8.8 mCi of FDG 18 triplane whole-body PET-CT was performed from the skull base to the mid thigh. FINDINGS: In the right neck posterior to the right parapharyngeal space and at the level of the foundry engineer space there is a focus of hypermetabolic activity having a maximal SUV value of 7.14. The nondiagnostic noncontrast enhanced CT component of today's PET-CT shows a small 1.2 cm size nodule in that same location. There is marked hypermetabolism in the right neck anterior and posterior cervical chain with multiple soft tissue masses seen on today's CT component. In addition, there is abnormal left anterior and particularly posterior cervical chain lymphadenopathy and hypermetabolism but less so than on the right. The maximal SUV value in the right neck lymphadenopathy is 12.67 and on the left 7.99. The hypermetabolic lymphadenopathy on the right extends into the right supraclavicular region with an additional hypermetabolic right infraclavicular node having a maximal SUV value of 2.82. There is extensive mesenteric hypermetabolism and lymphadenopathy seen in the central mesentery. This hypermetabolic adenopathy has SUV values ranging from 5.68 to 9.84. No other areas of frankly abnormal hypermetabolic activity are seen in the neck, chest, abdomen, or pelvis. There is chronic soft tissue hypermetabolism seen in the right shoulder. IMPRESSION: Findings above and below the diaphragm, as described above, consistent with recurrent lymphoma. <Electronically signed by Sb Shay > 03/06/21 [id number]
== END ==
LOC: M PLARAD 10:21
PROVIDERS: ATTEND Internal Medicine Hematology & Oncology
DX: C83.38 Diffuse large B-cell lymphoma, lymph nodes of multiple sites (principal)
CPT/HCPCS: 78815; A9552

== ENCOUNTER → 2021-03-08 | Outpatient (CLI) | payer MEDICARE, OTHER ==
[~2021-03-08] MED LIST changes: +LIDOCAINE 1% MDV 20ML VIAL As Ordered ONE; +SODIUM BICARBONATE 8.4% INJ 50MEQ 50 ML VIAL As Ordered ONE
[2021-03-08 11:21] VITALS: BP 138/68
--- NOTE | 2021-03-08 17:00 | REP ---
INDICATION: KARLOS. COMPARISON: None. TECHNIQUE: The procedure was performed by Zainab Mcgowan [facility], under the direct supervision of Dr. Arias. The risks and benefits of the procedure were explained to the patient and an informed consent was obtained both verbally and written. Directly prior to the start of the procedure a formal time-out was completed in the procedure room. FINDINGS: Using ultrasound guidance the right superolateral neck lymph node was localized. The skin was prepped and draped in a sterile fashion. Six mL of buffered lidocaine was used as a local anesthetic. Using ultrasound guidance a 17/18 gauge coaxial needle biopsy system was inserted and advanced into the right lymph node. Eight core biopsy specimens were obtained. Four specimens were sent to our lab here, and remaining 4 were sent out in RPMI solution, for further testing. The patient tolerated the procedure well and there were no immediate complications. After the appropriate amount of monitored convalescence the patient was discharged from the department. IMPRESSION: 1. Ultrasound-guided right superolateral neck lymph node biopsy. <Electronically signed by Zainab Mcgowan > 03/08/21 1513 <Electronically signed by Tam Arias > 03/08/21 [id number]
== END ==
LOC: M IRPRO 10:18
PROVIDERS: ATTEND Otolaryngology
DX: C82.20 Follicular lymphoma grade III, unspecified, unspecified site (principal); C83.30 Diffuse large B-cell lymphoma, unspecified site

== ENCOUNTER → 2021-03-26 | Outpatient (REF) | payer MEDICARE, OTHER ==
[~2021-03-26] MED LIST changes: -LIDOCAINE 1% MDV 20ML VIAL As Ordered ONE; -SODIUM BICARBONATE 8.4% INJ 50MEQ 50 ML VIAL As Ordered ONE
[2021-03-26 16:59] LABS: BLOOD UREA NITROGEN 14 MG/DL (7-18); GLOMERULAR FILTRATION RATE > 60.0 (>45)
== END ==
LOC: M LABDRAWC 15:48
PROVIDERS: ATTEND Physician Assistant Medical
DX: Z01.812 Encounter for preprocedural laboratory examination (principal); E11.9 Type 2 diabetes mellitus without complications

== ENCOUNTER → 2021-03-28 | Outpatient (CLI) | payer MEDICARE, OTHER ==
--- NOTE | 2021-04-01 17:13 | ECHO ---
ECHOCARDIOGRAM DATE OF PROCEDURE: 03/28/2021 Age: 70 Gender: Male Height: 168 cm Weight: 76 kilograms REFERRING PHYSICIAN: JACKELYN Edge REASON FOR THE ECHOCARDIOGRAM: Lymphoma 2D MEASUREMENTS: IVS 0.97 cm LV 4.2 cm LVPW 0.84 cm LA 3.8 cm Aorta 3.1 cm IVC 1.8 cm DOPPLER MEASUREMENT Peak velocity across the aortic valve 1.2 m/s Peak velocity across the LVOT 0.95 m/s Mitral E 0.60 Mitral A 0.87 with a ratio of 0.7 Maximum tricuspid valve velocity 2.2 m/sec 2D COMMENTS: 1. Normal left ventricular size, wall thickness, and normal global left ventricular systolic function. The estimated left ventricular systolic ejection fraction is 60-65%. 2. Normal left atrium. Normal right atrium and right ventricle. 3. The atrial septum appeared to be normal without evidence of defect or shunt. 4. Normal aortic root. 5. No pericardial effusion seen. 6. Mildly calcified aortic valve with normal leaflet excursion. Mildly calcified mitral annulus with normal anterior mitral valve leaflet motion. Normal tricuspid valve. The pulmonic valve and proximal pulmonary artery branches were not well visualized. 7. The inferior vena cava was not visualized. DOPPLER: It detects trace to mild tricuspid regurgitation calculated pulmonary artery systolic pressure was normal. Abnormal relaxation pattern was noted across the mitral valve leaflets as well as the mitral valve annulus, consistent with features of grade 1 left ventricular diastolic dysfunction. IMPRESSION: 1. Normal global left ventricular systolic function. There are some features of grade 1 left ventricular diastolic dysfunction manifested by abnormal relaxation. 3. Aortic valve sclerosis without stenosis or aortic regurgitation. 4. Isolated mitral annulus calcification. No evidence of mitral regurgitation or stenosis. 5. Trace to mild tricuspid regurgitation with a normal calculated pulmonary artery systolic pressure.
== END ==
LOC: M CARPUL 11:40
PROVIDERS: ATTEND Nurse Practitioner Adult Health
DX: C85.10 Unspecified B-cell lymphoma, unspecified site (principal); I35.8 Other nonrheumatic aortic valve disorders

== ENCOUNTER → 2021-04-05 | Outpatient (CLI) | payer MEDICARE, OTHER ==
[~2021-04-05] MED LIST changes: +LIDOCAINE 1% MDV 20ML VIAL As Ordered ONE; +SODIUM BICARBONATE 8.4% INJ 50MEQ 50 ML VIAL As Ordered ONE
[2021-04-05 09:05] LABS: HEMATOCRIT 38.4 % (36.0-47.0); HEMOGLOBIN 12.6 g/dl (12.0-15.5); MEAN CORPUSCULAR HEMOGLOBIN 28.7 pg (27.0-33.0); MEAN CORPUSCULAR HGB CONC 32.8 g/dl (32.0-36.5); MEAN CORPUSCULAR VOLUME 87.5 fl (80.0-96.0); PLATELET COUNT, AUTOMATED 229 10^3/uL (150-450); RED BLOOD COUNT 4.39 10^6/uL (4.00-5.40); WHITE BLOOD COUNT 8.2 10^3/uL (4.0-10.0)
[2021-04-05 09:27] LABS: INR 0.98; PROTHROMBIN TIME 13.4 SECONDS (12.7-14.5)
[2021-04-05 10:47] VITALS: BP 149/67
--- NOTE | 2021-04-05 17:31 | REP ---
INDICATION: B CELL LYMPHOMA. COMPARISON: None. TECHNIQUE: The procedure is performed by RENETTA Perez, under the direct supervision of Dr. Arias. The risks and benefits of the procedure were explained to the patient and informed consent was obtained both orally and written. Directly prior to the start of the procedure, a formal timeout was done in the exam room. The left iliac crest was localized using CT guidance. Skin was prepped and draped in the usual sterile fashion. Ten ml of buffered lidocaine was used as a local anesthetic. FINDINGS: Using CT guidance an 11 gauge bone biopsy system was inserted. Approximately 7 mL of marrow fluid was obtained, as well as 1 core of bone. Patient tolerated the procedure well and there were no immediate complications. After the appropriate amount of monitored convalescence the patient was discharged from the department. IMPRESSION: CT-guided bone marrow aspiration and core bone biopsy. <Electronically signed by Zainab Mcgowan > 04/05/21 1227 <Electronically signed by Tam Arias > 04/05/21 [id number]
== END ==
LOC: M IRPRO 07:56
PROVIDERS: ATTEND Nurse Practitioner Adult Health
DX: C85.10 Unspecified B-cell lymphoma, unspecified site (principal)

== ENCOUNTER → 2021-10-31 | Outpatient (CLI) | payer MEDICARE, OTHER ==
[~2021-10-31] MED LIST changes: -LIDOCAINE 1% MDV 20ML VIAL As Ordered ONE; +LOSA25TA13 PO; -LOSA25TA14 PO; -SODIUM BICARBONATE 8.4% INJ 50MEQ 50 ML VIAL As Ordered ONE
== END ==
LOC: M CLY 11:48
PROVIDERS: ATTEND Nurse Practitioner Family
DX: M54.50 Low back pain, unspecified (principal)

== ENCOUNTER → 2021-11-16 | Outpatient (CLI) | payer MEDICARE, OTHER | LOC: M PLAIMG 07:43 | PROVIDERS: ATTEND Orthopaedic Surgery | DX: M47.816 Spondylosis without myelopathy or radiculopathy, lumbar region (principal); M51.26 Other intervertebral disc displacement, lumbar region; M48.061 Spinal stenosis, lumbar region without neurogenic claudication ==

== ENCOUNTER → 2021-12-05 | Outpatient (CLI) | payer MEDICARE, OTHER | LOC: M PAIN 09:00 | PROVIDERS: ATTEND Nurse Practitioner Family | DX: M79.10 Myalgia, unspecified site (principal); G89.29 Other chronic pain; E11.40 Type 2 diabetes mellitus with diabetic neuropathy, unspecified; Z86.59 Personal history of other mental and behavioral disorders; Z87.891 Personal history of nicotine dependence; Z88.8 Allergy status to other drugs, medicaments and biological substances; Z79.4 Long term (current) use of insulin; Z79.82 Long term (current) use of aspirin ==

== ENCOUNTER → 2022-01-15 | Outpatient (CLI) | payer MEDICARE, OTHER | LOC: M LABSMTC 09:46 | PROVIDERS: ATTEND Anesthesiology | DX: Z01.812 Encounter for preprocedural laboratory examination (principal); Z20.822 Contact with and (suspected) exposure to COVID-19 ==

== ENCOUNTER → 2022-01-18 | Outpatient (CLI) | payer MEDICARE, OTHER ==
[~2022-01-18] MED LIST changes: +BUPIVACAINE HCL 0.25% 10ML VIAL As Ordered ONE; +BUPIVACAINE HCL 0.25% 30ML VIAL As Ordered ONE; +NORCO, ANEXSIA 5/325MG TABLET (HYDROcodone/ACETAMINOPHEN) As Ordered ONE; +TRIAMCINOLONE ACETONIDE SUSP 40 MG/ML VIAL (J3301) As Ordered ONE; +diazePAM 5MG TABLET As Ordered ONE
== END ==
LOC: M PAIN 08:30
PROVIDERS: ATTEND Anesthesiology
DX: M79.18 Myalgia, other site (principal); G89.29 Other chronic pain; E11.40 Type 2 diabetes mellitus with diabetic neuropathy, unspecified; Z86.59 Personal history of other mental and behavioral disorders; Z87.891 Personal history of nicotine dependence; Z88.8 Allergy status to other drugs, medicaments and biological substances; Z79.4 Long term (current) use of insulin; Z79.899 Other long term (current) drug therapy
CPT/HCPCS: 20552; J3301

== ENCOUNTER → 2022-01-30 | Outpatient (REF) | payer MEDICARE, OTHER ==
[~2022-01-30] MED LIST changes: -BUPIVACAINE HCL 0.25% 10ML VIAL As Ordered ONE; -BUPIVACAINE HCL 0.25% 30ML VIAL As Ordered ONE; -NORCO, ANEXSIA 5/325MG TABLET (HYDROcodone/ACETAMINOPHEN) As Ordered ONE; +POTA-150 PO; -POTA10TA17 PO; -TRIAMCINOLONE ACETONIDE SUSP 40 MG/ML VIAL (J3301) As Ordered ONE; -diazePAM 5MG TABLET As Ordered ONE
== END ==
LOC: M SFHCCLAY 16:55
PROVIDERS: ATTEND Family Medicine
DX: J06.9 Acute upper respiratory infection, unspecified (principal)

== ENCOUNTER → 2022-02-27 | Outpatient (CLI) | payer MEDICARE, OTHER | LOC: M PAIN 11:00 | PROVIDERS: ATTEND Nurse Practitioner Family | DX: M79.10 Myalgia, unspecified site (principal); G89.29 Other chronic pain; E11.40 Type 2 diabetes mellitus with diabetic neuropathy, unspecified; I10 Essential (primary) hypertension; Z86.59 Personal history of other mental and behavioral disorders; Z87.891 Personal history of nicotine dependence; Z88.8 Allergy status to other drugs, medicaments and biological substances; Z79.4 Long term (current) use of insulin; Z79.82 Long term (current) use of aspirin; Z79.899 Other long term (current) drug therapy ==

== ENCOUNTER → 2022-03-20 | Outpatient (REF) | payer MEDICARE, OTHER ==
[2022-03-20 18:10] LABS: HEMOGLOBIN A1c 6.5 %
[2022-03-20 18:22] LABS: CHOLESTEROL RISK RATIO 3.666 (<5)
[2022-03-20 18:30] LABS: CREATININE, URINE 72.1 MG/DL; MAU/CREAT RATIO 141.4 MCG/MG (0.0-30.0)
== END ==
LOC: M SFHCCLAY 13:46
PROVIDERS: ATTEND Family Medicine
DX: E11.40 Type 2 diabetes mellitus with diabetic neuropathy, unspecified (principal); Z79.4 Long term (current) use of insulin

== ENCOUNTER → 2022-10-22 | Outpatient (CLI) | payer MEDICARE, OTHER ==
[~2022-10-22] MED LIST changes: +ASPI-655 PO; -ASPI1CHW3 PO
== END ==
LOC: M PAIN 11:15
PROVIDERS: ATTEND Nurse Practitioner Family
DX: M79.10 Myalgia, unspecified site (principal); G89.29 Other chronic pain; E11.9 Type 2 diabetes mellitus without complications; I10 Essential (primary) hypertension; Z86.59 Personal history of other mental and behavioral disorders; Z87.891 Personal history of nicotine dependence; Z88.8 Allergy status to other drugs, medicaments and biological substances; Z79.4 Long term (current) use of insulin; Z79.82 Long term (current) use of aspirin; Z79.84 Long term (current) use of oral hypoglycemic drugs; Z79.899 Other long term (current) drug therapy

== ENCOUNTER → 2022-12-03 | Outpatient (CLI) | payer MEDICARE, OTHER ==
[~2022-12-03] MED LIST changes: +CINN500C15 PO; +MECL25CH45; +MELO7.5T35; +TRIAMCINOLONE ACETONIDE SUSP 40MG/ML 1ML VIAL As Ordered ONE; +VIT B1 PO; +VITA500C24 PO; +ZINC100T3 PO; +ZOLP5TAB
== END ==
LOC: M PAIN 09:00
PROVIDERS: ATTEND Anesthesiology
DX: M79.18 Myalgia, other site (principal); G89.29 Other chronic pain; E11.40 Type 2 diabetes mellitus with diabetic neuropathy, unspecified; Z86.59 Personal history of other mental and behavioral disorders; Z87.891 Personal history of nicotine dependence; Z88.8 Allergy status to other drugs, medicaments and biological substances; Z79.4 Long term (current) use of insulin; Z79.82 Long term (current) use of aspirin; Z79.84 Long term (current) use of oral hypoglycemic drugs; Z79.85 Long-term (current) use of injectable non-insulin antidiabetic drugs; Z79.899 Other long term (current) drug therapy
CPT/HCPCS: 20552; J3301

== ENCOUNTER → 2023-01-10 | Outpatient (CLI) | payer MEDICARE, OTHER ==
[~2023-01-10] MED LIST changes: -TRIAMCINOLONE ACETONIDE SUSP 40MG/ML 1ML VIAL As Ordered ONE
== END ==
LOC: M PAIN 09:15
PROVIDERS: ATTEND Nurse Practitioner Family
DX: G89.29 Other chronic pain (principal); M79.18 Myalgia, other site; R10.2 Pelvic and perineal pain; F32.A Depression, unspecified; J30.9 Allergic rhinitis, unspecified; M19.90 Unspecified osteoarthritis, unspecified site; I10 Essential (primary) hypertension; E11.42 Type 2 diabetes mellitus with diabetic polyneuropathy; E78.00 Pure hypercholesterolemia, unspecified; Z87.891 Personal history of nicotine dependence; Z79.4 Long term (current) use of insulin; Z79.899 Other long term (current) drug therapy; I69.311 Memory deficit following cerebral infarction; Z88.8 Allergy status to other drugs, medicaments and biological substances

== ENCOUNTER → 2023-01-16 | Outpatient (CLI) | payer MEDICARE, OTHER | LOC: M PAIN 12:00 | PROVIDERS: ATTEND Anesthesiology | DX: M54.50 Low back pain, unspecified (principal); M79.18 Myalgia, other site; M48.061 Spinal stenosis, lumbar region without neurogenic claudication; G89.29 Other chronic pain; R10.2 Pelvic and perineal pain; F32.A Depression, unspecified; J30.9 Allergic rhinitis, unspecified; I69.311 Memory deficit following cerebral infarction; I10 Essential (primary) hypertension; E11.42 Type 2 diabetes mellitus with diabetic polyneuropathy; Z87.891 Personal history of nicotine dependence; Z79.4 Long term (current) use of insulin; Z79.85 Long-term (current) use of injectable non-insulin antidiabetic drugs; Z79.899 Other long term (current) drug therapy; Z88.8 Allergy status to other drugs, medicaments and biological substances ==

== ENCOUNTER → 2023-04-02 | Outpatient (REF) | payer MEDICARE, OTHER ==
[~2023-04-02] MED LIST changes: +DICL20GE TP; +EZET10TA58 PO; +LEXA1TAB PO; +NOXI1TAB PO; -ZETI10TA16 PO
[2023-04-02 18:48] LABS: HEMOGLOBIN A1c 6.7 % (4.0-6.0)
== END ==
LOC: M SFHCCLAY 12:26
PROVIDERS: ATTEND Family Medicine
DX: E11.40 Type 2 diabetes mellitus with diabetic neuropathy, unspecified (principal); Z79.4 Long term (current) use of insulin

== ENCOUNTER → 2023-11-10 | Outpatient (REF) | payer MEDICARE, OTHER ==
[~2023-11-10] MED LIST changes: +CHOL25TA9 PO; +COLE1TAB PO; +MEMA10TA PO; -MEMA10TA19 PO; +NAME28CA PO
[2023-11-10 17:56] LABS: BASO # 0.1 10^3/uL (0.0-0.2); BASO % 1.1 % (0.0-1.0); EOS # 0.2 10^3/uL (0.0-0.5); EOS % 2.7 % (0.0-3.0); HEMATOCRIT 38.8 % (36.0-47.0); HEMOGLOBIN 12.1 g/dl (12.0-15.5); LYMPH # 1.8 10^3/uL (1.5-5.0); LYMPH % 28.7 % (24.0-44.0); MEAN CORPUSCULAR HEMOGLOBIN 28.1 pg (27.0-33.0); MEAN CORPUSCULAR HGB CONC 31.2 g/dl (32.0-36.5); MONO # 0.6 10^3/uL (0.0-0.8); NEUTROPHILS # 3.6 10^3/uL (1.5-8.5); NEUTROPHILS % 58.2 % (36.0-66.0); PLATELET COUNT, AUTOMATED 230 10^3/uL (150-450); RED BLOOD COUNT 4.31 10^6/uL (4.00-5.40); WHITE BLOOD COUNT 6.2 10^3/uL (4.0-10.0)
[2023-11-10 18:00] LABS: LDH LACTATE DEHYDROGENASE 154 U/L (120-246)
[2023-11-10 18:02] LABS: ALBUMIN 3.4 G/DL (3.2-5.2); ALKALINE PHOSPHATASE 127 U/L (46-116); ALT/SGPT 33 U/L (7.0-40); AST/SGOT 57 U/L (<34); BILIRUBIN,TOTAL 0.3 MG/DL (0.3-1.2); BLOOD UREA NITROGEN 12 MG/DL (9-23); CALCIUM LEVEL 9.5 MG/DL (8.3-10.6); CARBON DIOXIDE LEVEL 30 MMOL/L (20-31); CHLORIDE LEVEL 109 MMOL/L (98-107); CHOLESTEROL LEVEL 101 MG/DL (<200); CHOLESTEROL RISK RATIO 3.13 (<5); CREATININE FOR GFR 0.88 MG/DL (0.55-1.30); GLOMERULAR FILTRATION RATE > 60.0 (>39); GLUCOSE, FASTING 118 MG/DL (74-106); HDL CHOLESTEROL 32.2 MG/DL (>40); LDL CHOLESTEROL 49.4 MG/DL (<100); NON-HDL-C 68.8 MG/DL; POTASSIUM SERUM 4.1 MMOL/L (3.5-5.1); SODIUM LEVEL 143 MMOL/L (136-145); TOTAL PROTEIN 7.1 G/DL (5.7-8.2); TRIGLYCERIDES LEVEL 97 MG/DL (<150)
[2023-11-10 18:03] LABS: FREE T4 0.87 NG/DL (0.89-1.76); THYROID STIMULATING HORMONE 0.815 uIU/ML (0.55-4.78)
[2023-11-10 18:22] LABS: HEMOGLOBIN A1c 7.2 % (4.0-6.0)
== END ==
LOC: M SFHCCLAY 09:38
PROVIDERS: ATTEND Family Medicine
DX: R59.9 Enlarged lymph nodes, unspecified (principal); E11.9 Type 2 diabetes mellitus without complications; Z79.4 Long term (current) use of insulin; E11.40 Type 2 diabetes mellitus with diabetic neuropathy, unspecified

== ENCOUNTER → 2023-11-21 | Outpatient (CLI) | payer MEDICARE, OTHER ==
[~2023-11-21] MED LIST changes: +GASTROGRAFIN SOLUTION 30ML ONE; +ISOVUE-370 76% 100ML VIAL ONE
== END ==
LOC: M PLAIMG 09:10
PROVIDERS: ATTEND Internal Medicine Medical Oncology
DX: C83.36 Diffuse large B-cell lymphoma, intrapelvic lymph nodes (principal); K76.0 Fatty (change of) liver, not elsewhere classified; D35.02 Benign neoplasm of left adrenal gland; R59.0 Localized enlarged lymph nodes
CPT/HCPCS: 71260; 74177; Q9963; Q9967

== ENCOUNTER → 2023-12-01 | Outpatient (CLI) | payer MEDICARE, OTHER ==
[~2023-12-01] MED LIST changes: -GASTROGRAFIN SOLUTION 30ML ONE; -ISOVUE-370 76% 100ML VIAL ONE
== END ==
LOC: M PAIN 10:15
PROVIDERS: ATTEND Nurse Practitioner Family
DX: M79.10 Myalgia, unspecified site (principal); G89.29 Other chronic pain; R10.2 Pelvic and perineal pain; F32.A Depression, unspecified; M19.90 Unspecified osteoarthritis, unspecified site; I10 Essential (primary) hypertension; E11.42 Type 2 diabetes mellitus with diabetic polyneuropathy; Z87.891 Personal history of nicotine dependence; Z79.84 Long term (current) use of oral hypoglycemic drugs; Z79.899 Other long term (current) drug therapy; Z88.8 Allergy status to other drugs, medicaments and biological substances

== ENCOUNTER → 2023-12-15 | Outpatient (CLI) | payer MEDICARE, OTHER | LOC: M SOG 08:01 | PROVIDERS: ATTEND Orthopaedic Surgery | DX: M25.561 Pain in right knee (principal); M76.892 Other specified enthesopathies of left lower limb, excluding foot ==

== ENCOUNTER → 2023-12-30 | Outpatient (CLI) | payer MEDICARE, OTHER ==
[~2023-12-30] MED LIST changes: +TRIAMCINOLONE ACETONIDE SUSP 40MG/ML 1ML VIAL As Ordered ONE
== END ==
LOC: M PAIN 10:00
PROVIDERS: ATTEND Anesthesiology
DX: M79.18 Myalgia, other site (principal); G89.29 Other chronic pain; F32.A Depression, unspecified; M19.90 Unspecified osteoarthritis, unspecified site; I10 Essential (primary) hypertension; E11.42 Type 2 diabetes mellitus with diabetic polyneuropathy; E78.00 Pure hypercholesterolemia, unspecified; Z87.891 Personal history of nicotine dependence; Z79.84 Long term (current) use of oral hypoglycemic drugs; Z79.899 Other long term (current) drug therapy; Z88.8 Allergy status to other drugs, medicaments and biological substances
CPT/HCPCS: 20552; J0665; J3301

== ENCOUNTER → 2024-01-30 | Outpatient (CLI) | payer MEDICARE, OTHER ==
[~2024-01-30] MED LIST changes: -TRIAMCINOLONE ACETONIDE SUSP 40MG/ML 1ML VIAL As Ordered ONE
== END ==
LOC: M PAIN 10:00
PROVIDERS: ATTEND Nurse Practitioner Family
DX: G89.29 Other chronic pain (principal); M54.50 Low back pain, unspecified; F32.A Depression, unspecified; M19.90 Unspecified osteoarthritis, unspecified site; I10 Essential (primary) hypertension; I69.311 Memory deficit following cerebral infarction; E11.42 Type 2 diabetes mellitus with diabetic polyneuropathy; E78.00 Pure hypercholesterolemia, unspecified; Z87.891 Personal history of nicotine dependence; Z79.84 Long term (current) use of oral hypoglycemic drugs; Z79.899 Other long term (current) drug therapy; Z88.8 Allergy status to other drugs, medicaments and biological substances

== ENCOUNTER → 2024-02-26 | Outpatient (CLI) | payer MEDICARE, OTHER | LOC: M RAD 13:07 | PROVIDERS: ATTEND Nurse Practitioner Family | DX: M54.50 Low back pain, unspecified (principal); M85.88 Other specified disorders of bone density and structure, other site; M41.9 Scoliosis, unspecified; M51.36 Other intervertebral disc degeneration, lumbar region ==

== ENCOUNTER → 2024-03-04 | Outpatient (CLI) | payer MEDICARE, OTHER | LOC: M PAIN 17:30 | PROVIDERS: ATTEND Nurse Practitioner Family | DX: M79.18 Myalgia, other site (principal); M47.816 Spondylosis without myelopathy or radiculopathy, lumbar region; G89.29 Other chronic pain; F32.A Depression, unspecified; H04.123 Dry eye syndrome of bilateral lacrimal glands; M19.90 Unspecified osteoarthritis, unspecified site; I10 Essential (primary) hypertension; E11.42 Type 2 diabetes mellitus with diabetic polyneuropathy; E78.00 Pure hypercholesterolemia, unspecified; Z87.891 Personal history of nicotine dependence; Z79.84 Long term (current) use of oral hypoglycemic drugs; Z79.899 Other long term (current) drug therapy; Z88.8 Allergy status to other drugs, medicaments and biological substances ==

== ENCOUNTER → 2024-03-05 | Outpatient (REF) | payer MEDICARE, OTHER | LOC: M SFHCDERM 17:54 | PROVIDERS: ATTEND Nurse Practitioner Family | DX: B07.9 Viral wart, unspecified (principal); L72.0 Epidermal cyst; L57.8 Other skin changes due to chronic exposure to nonionizing radiation ==

== ENCOUNTER 2024-03-24 12:17 | Observation (INO) | payer MEDICARE, OTHER ==
[~2024-03-24] VITALS: Ht 167.6 cm; Wt 81.9 kg
[~2024-03-24 12:17] MED LIST changes: +DICL20GE TOP; -DICL20GE TP; +GABA-1172 PO; -GABA-282 PO
[2024-03-24 14:20] LABS: BASO # 0.1 10^3/uL (0.0-0.2); BASO % 1.1 % (0.0-1.0); EOS # 0.1 10^3/uL (0.0-0.5); EOS % 3.1 % (0.0-3.0); HEMATOCRIT 32.2 % (36.0-47.0); HEMOGLOBIN 9.9 g/dl (12.0-15.5); LYMPH # 0.9 10^3/uL (1.5-5.0); LYMPH % 20.8 % (24.0-44.0); MEAN CORPUSCULAR HEMOGLOBIN 25.8 pg (27.0-33.0); MEAN CORPUSCULAR HGB CONC 30.7 g/dl (32.0-36.5); MEAN CORPUSCULAR VOLUME 84.1 fl (80.0-96.0); MONO # 0.4 10^3/uL (0.0-0.8); MONO % 9.3 % (2.0-8.0); NEUTROPHILS % 65.5 % (36.0-66.0); PLATELET COUNT, AUTOMATED 192 10^3/uL (150-450); RED BLOOD COUNT 3.83 10^6/uL (4.00-5.40); WHITE BLOOD COUNT 4.5 10^3/uL (4.0-10.0)
[2024-03-24 14:33] LABS: CK-MB VALUE MASS < 1.0 NG/ML (<3.6)
[2024-03-24 14:35] LABS: ALBUMIN 3.1 G/DL (3.2-5.2); ALKALINE PHOSPHATASE 122 U/L (46-116); ALT/SGPT 42 U/L (7.0-40); AST/SGOT 54 U/L (<34); BILIRUBIN,DIRECT 0.1 MG/DL (<0.4); BILIRUBIN,TOTAL 0.3 MG/DL (0.3-1.2); BLOOD UREA NITROGEN 18 MG/DL (9-23); CALCIUM LEVEL 9.8 MG/DL (8.3-10.6); CARBON DIOXIDE LEVEL 24 MMOL/L (20-31); CHLORIDE LEVEL 107 MMOL/L (98-107); CPK CREATINE PHOSPHOKINASE 58 U/L (34-145); GLOMERULAR FILTRATION RATE > 60.0 (>39); GLUCOSE, FASTING 219 MG/DL (74-106); MAGNESIUM LEVEL 1.3 MG/DL (1.8-2.4); MB/CK RELATIVE INDEX 1.72 (< OR =4); POTASSIUM SERUM 4.8 MMOL/L (3.5-5.1); SODIUM LEVEL 139 MMOL/L (136-145); TOTAL PROTEIN 6.6 G/DL (5.7-8.2)
[2024-03-24 14:37] LABS: THYROID STIMULATING HORMONE 0.436 uIU/ML (0.55-4.78)
[2024-03-24 15:13] LABS: LIPASE 47 U/L (12-53)
[2024-03-24 15:16] LABS: PTH INTACT 12.9 PG/ML (18.5-88.0)
[2024-03-24 15:18] LABS: FREE T4 0.97 NG/DL (0.89-1.76)
[2024-03-24 16:02] LABS: D-DIMER QUANT 0.58 ug/mL (<0.5); INR 1.14; PARTIAL THROMBOPLASTIN TIME 28.3 SECONDS (24.8-34.2); PROTHROMBIN TIME 14.3 SECONDS (12.5-14.5)
[2024-03-24] MEDS: MAG SULF 1GM/100ML (MAG RUN) 1 GM in IV 1 EA IV ONE (16:10)
[2024-03-24 16:15] LABS: PERCENT SATURATION 6.1 % (13.2-45.0)
[2024-03-24] MEDS: NS 1,000 ML IV ONE (16:16)
[2024-03-24 16:19] LABS: FERRITIN 7.5 NG/ML (7.3-270.7)
[2024-03-24] MEDS ORDERED: ISOVUE-370 76% 100ML VIAL As Ordered ONE (17:45)
[2024-03-24 18:41] LABS: APPEARANCE, URINE MANUAL CLEAR (CLEAR); COLOR, URINE MANUAL YELLOW (YELLOW)
[2024-03-24 18:42] LABS: BILIRUBIN, URINE MANUAL NEGATIVE (NEGATIVE); BLOOD URINE MANUAL NEGATIVE (NEGATIVE); GLUCOSE, URINE (UA) MANUAL 2+(250 MG/DL) mg/dL (NEGATIVE); KETONE, URINE MANUAL NEGATIVE (NEGATIVE); LEUKOCYTE ESTERASE, URINE MAN NEGATIVE (NEGATIVE); NITRITE, URINE MANUAL NEGATIVE (NEGATIVE); PROTEIN, URINE MANUAL NEGATIVE (NEGATIVE); UROBILINOGEN, URINE MANUAL NORMAL (NORMAL)
[2024-03-24] MEDS ORDERED: GABA-284 PO (22:44)
[2024-03-24] MEDS ORDERED: METF-838 PO (22:44)
[2024-03-24] MEDS ORDERED: CALC600T86 PO (22:44)
[2024-03-24] MEDS ORDERED: THERTAB52 PO (22:44)
[2024-03-24] MEDS ORDERED: HOME MED LIST COMPLETE! XX SCH (22:45)
[2024-03-25] MEDS ORDERED: MOM 30ML SUSPENSION UDC PO PRN (00:40)
[2024-03-25] MEDS ORDERED: ACETAMINOPHEN 325 MG TAB PO PRN (00:40)
[2024-03-25] MEDS ORDERED: MAALOX 30 ML SUSP *UDC PO PRN (00:40)
[2024-03-25] MEDS ORDERED: DEXTROSE 50% 50ML SYRINGE IV PRN (01:20)
[2024-03-25] MEDS ORDERED: GLUCOSE 4 GM CHEW PO PRN (01:20)
[2024-03-25] MEDS ORDERED: GLUCAGON INJ 1MG VIAL SC PRN (01:20)
[2024-03-25] MEDS ORDERED: zolPIDEM TARTRATE 5 MG TAB PO PRN (02:00)
[2024-03-25 02:30] VITALS: BP 149/67; TEMP 97.7; O2SAT 99
[2024-03-25] MEDS: ESCITALOPRAM OXALATE 10 MG TAB (LEXAPRO) PO SCH (02:52)
[2024-03-25] MEDS: DONEPEZIL 5 MG TAB PO SCH (02:52)
[2024-03-25] MEDS: MAG SULF 1GM/100ML (MAG RUN) 1 GM in IV 1 EA IV SCH (02:53)
[2024-03-25] MEDS: FERRIC CARBOXYMALTOSE INJ 750 MG, VIAL MATE ADAPTER 1 EACH in NS 250 ML IV ONE (05:49)
[2024-03-25 06:02] VITALS: BP 145/64; TEMP 98.1; O2SAT 98
[2024-03-25] MEDS ORDERED: CALCIUM ACETATE 667MG GELCAP PO SCH (08:00)
[2024-03-25] MEDS ORDERED: ENOXAPARIN 40MG/0.4ML SYRINGE (J1650 PER 10MG) SC SCH (09:00)
[2024-03-25] MEDS: INSULIN LISPRO (NovoLOG) PER UNIT SC SCH (09:41)
[2024-03-25] MEDS: VITAMIN D 1,000 INTERNATIONAL UNITS TABLET PO SCH (09:42)
[2024-03-25] MEDS: EZETIMIBE 10MG TABLET (ZETIA) PO SCH (09:42)
[2024-03-25] MEDS: PRAVASTATIN 20 MG TAB PO SCH (09:42)
[2024-03-25] MEDS: LEVEMIR (INSULIN DETEMIR) 1 UNITS/0.01ML SC SCH (09:42)
[2024-03-25] MEDS: MULTIVITAMINS/MINERALS THERAP 1 TAB PO SCH (09:43)
[2024-03-25] MEDS: MEMANTINE 5MG TABLET (NAMENDA) PO SCH (09:43)
[2024-03-25] MEDS: GABAPENTIN 400MG CAP PO SCH (09:43)
[2024-03-25 12:00] VITALS: BP 137/62; TEMP 99.3; O2SAT 97
[2024-03-25] MEDS ORDERED: OYSTER SHELL CALCIUM 500 MG TAB PO SCH (21:00)
[2024-03-25] MEDS ORDERED: INSULIN LISPRO (NovoLOG) PER UNIT SC SCH (21:00)
== END 2024-03-25 18:15 | disposition home or self-care (01) ==
LOC: M ED 12:17 → M ED INP 03-25 00:37 → INTOOBSV 03-25 00:37 → M MSPAV 03-25 02:20
PROVIDERS: ADMIT Student in an Organized Health Care Education/Training Program; ATTEND Internal Medicine
DX: R53.1 Weakness (principal); D64.9 Anemia, unspecified; G30.9 Alzheimer's disease, unspecified; I10 Essential (primary) hypertension; E11.9 Type 2 diabetes mellitus without complications; Z86.73 Personal history of transient ischemic attack (TIA), and cerebral infarction without residual deficits; C83.30 Diffuse large B-cell lymphoma, unspecified site; G47.00 Insomnia, unspecified; Z79.84 Long term (current) use of oral hypoglycemic drugs; Z79.899 Other long term (current) drug therapy; Z88.8 Allergy status to other drugs, medicaments and biological substances
CPT/HCPCS: 51702; 96361; 96374; 97116; 97161; G0378; J1439; J1815; J3475

== ENCOUNTER → 2024-03-29 | Outpatient (REF) | payer MEDICARE, OTHER ==
[~2024-03-29] MED LIST changes: +CALC600T86 PO; +GABA-284 PO; +METF-838 PO; +THERTAB52 PO
[2024-03-29 19:04] LABS: BASO # 0.1 10^3/uL (0.0-0.2); EOS # 0.2 10^3/uL (0.0-0.5); EOS % 3.4 % (0.0-3.0); HEMATOCRIT 33.7 % (36.0-47.0); HEMOGLOBIN 10.2 g/dl (12.0-15.5); LYMPH # 0.9 10^3/uL (1.5-5.0); LYMPH % 15.3 % (24.0-44.0); MEAN CORPUSCULAR HEMOGLOBIN 26.1 pg (27.0-33.0); MEAN CORPUSCULAR HGB CONC 30.3 g/dl (32.0-36.5); MEAN CORPUSCULAR VOLUME 86.2 fl (80.0-96.0); MONO # 0.6 10^3/uL (0.0-0.8); MONO % 9.2 % (2.0-8.0); NEUTROPHILS # 4.3 10^3/uL (1.5-8.5); NEUTROPHILS % 70.4 % (36.0-66.0); PLATELET COUNT, AUTOMATED 200 10^3/uL (150-450); RED BLOOD COUNT 3.91 10^6/uL (4.00-5.40); WHITE BLOOD COUNT 6.1 10^3/uL (4.0-10.0)
[2024-03-29 19:26] LABS: HEMOGLOBIN A1c 9.3 % (4.0-6.0)
[2024-03-29 19:27] LABS: ALBUMIN 3.3 G/DL (3.2-5.2); ALKALINE PHOSPHATASE 119 U/L (46-116); ALT/SGPT 30 U/L (7.0-40); AST/SGOT 38 U/L (<34); BILIRUBIN,TOTAL 0.3 MG/DL (0.3-1.2); BLOOD UREA NITROGEN 12 MG/DL (9-23); CALCIUM LEVEL 9.7 MG/DL (8.3-10.6); CARBON DIOXIDE LEVEL 27 MMOL/L (20-31); CHLORIDE LEVEL 107 MMOL/L (98-107); CHOLESTEROL LEVEL 123 MG/DL (<200); CHOLESTEROL RISK RATIO 3.21 (<5); CREATININE FOR GFR 0.88 MG/DL (0.55-1.30); GLOMERULAR FILTRATION RATE > 60.0 (>39); GLUCOSE, FASTING 112 MG/DL (74-106); HDL CHOLESTEROL 38.3 MG/DL (>40); LDL CHOLESTEROL 61.7 MG/DL (<100); NON-HDL-C 84.7 MG/DL; POTASSIUM SERUM 4.3 MMOL/L (3.5-5.1); SODIUM LEVEL 139 MMOL/L (136-145); TOTAL PROTEIN 6.6 G/DL (5.7-8.2); TRIGLYCERIDES LEVEL 115 MG/DL (<150)
[2024-03-29 19:28] LABS: FREE T4 1.02 NG/DL (0.89-1.76); THYROID STIMULATING HORMONE 0.937 uIU/ML (0.55-4.78)
== END ==
LOC: M SFHCCLAY 10:22
PROVIDERS: ATTEND Nurse Practitioner Family
DX: E11.40 Type 2 diabetes mellitus with diabetic neuropathy, unspecified (principal); I10 Essential (primary) hypertension; G30.9 Alzheimer's disease, unspecified; E55.9 Vitamin D deficiency, unspecified

== ENCOUNTER → 2024-04-01 | Outpatient (REF) | payer MEDICARE, OTHER ==
[2024-04-01 18:30] LABS: BASO # 0.1 10^3/uL (0.0-0.2); EOS # 0.1 10^3/uL (0.0-0.5); EOS % 2.9 % (0.0-3.0); HEMOGLOBIN 10.3 g/dl (12.0-15.5); LYMPH # 0.6 10^3/uL (1.5-5.0); LYMPH % 12.3 % (24.0-44.0); MEAN CORPUSCULAR HEMOGLOBIN 26.2 pg (27.0-33.0); MEAN CORPUSCULAR HGB CONC 30.3 g/dl (32.0-36.5); MEAN CORPUSCULAR VOLUME 86.5 fl (80.0-96.0); MONO # 0.5 10^3/uL (0.0-0.8); MONO % 9.6 % (2.0-8.0); NEUTROPHILS # 3.5 10^3/uL (1.5-8.5); NEUTROPHILS % 73.4 % (36.0-66.0); PLATELET COUNT, AUTOMATED 187 10^3/uL (150-450); RED BLOOD COUNT 3.93 10^6/uL (4.00-5.40); WHITE BLOOD COUNT 4.8 10^3/uL (4.0-10.0)
[2024-04-01 19:01] LABS: MAGNESIUM LEVEL 1.6 MG/DL (1.8-2.4)
[2024-04-01 19:03] LABS: PERCENT SATURATION 21.9 % (13.2-45.0)
[2024-04-01 19:07] LABS: FERRITIN 412.1 NG/ML (7.3-270.7)
== END ==
LOC: M SFHCCLAY 13:31
PROVIDERS: ATTEND Nurse Practitioner Family
DX: Z85.72 Personal history of non-Hodgkin lymphomas (principal); D50.8 Other iron deficiency anemias; E83.42 Hypomagnesemia

== ENCOUNTER → 2024-04-21 | Outpatient (CLI) | payer MEDICARE, OTHER | LOC: M PAIN 15:30 | PROVIDERS: ATTEND Anesthesiology | DX: M47.816 Spondylosis without myelopathy or radiculopathy, lumbar region (principal); G89.29 Other chronic pain; M54.50 Low back pain, unspecified; M79.18 Myalgia, other site; R10.2 Pelvic and perineal pain; F32.A Depression, unspecified; M19.90 Unspecified osteoarthritis, unspecified site; I69.311 Memory deficit following cerebral infarction; I10 Essential (primary) hypertension; E11.42 Type 2 diabetes mellitus with diabetic polyneuropathy; E78.00 Pure hypercholesterolemia, unspecified; Z87.891 Personal history of nicotine dependence; Z79.84 Long term (current) use of oral hypoglycemic drugs; Z79.899 Other long term (current) drug therapy; Z88.8 Allergy status to other drugs, medicaments and biological substances | CPT/HCPCS: 76000; G0463 ==

== ENCOUNTER → 2024-05-10 | Outpatient (CLI) | payer MEDICARE, OTHER | LOC: M PLARAD 12:31 | PROVIDERS: ATTEND Internal Medicine Medical Oncology | DX: C83.36 Diffuse large B-cell lymphoma, intrapelvic lymph nodes (principal) | CPT/HCPCS: 78815; A9552 ==

== ENCOUNTER → 2024-05-13 | Outpatient (CLI) | payer MEDICARE, OTHER ==
[~2024-05-13] MED LIST changes: +LIDOCAINE 1% MDV 20ML VIAL As Ordered ONE
[2024-05-13 09:50] VITALS: BP 170/75; TEMP 97.1; O2SAT 98
== END ==
LOC: M IRPRO 09:48
PROVIDERS: ATTEND Internal Medicine Medical Oncology
DX: R59.9 Enlarged lymph nodes, unspecified (principal); N63.31 Unspecified lump in axillary tail of the right breast; C85.10 Unspecified B-cell lymphoma, unspecified site

== ENCOUNTER → 2024-05-28 | Outpatient (CLI) | payer MEDICARE, OTHER ==
[~2024-05-28] MED LIST changes: +ISOVUE-M 300 61% 15ML VIAL As Ordered ONE; -LIDOCAINE 1% MDV 20ML VIAL As Ordered ONE; +LIDOCAINE 1% SDV 30ML VIAL As Ordered ONE; +TRIAMCINOLONE ACETONIDE SUSP 40MG/ML 1ML VIAL As Ordered ONE
== END ==
LOC: M PAIN 12:45
PROVIDERS: ATTEND Anesthesiology
DX: M47.816 Spondylosis without myelopathy or radiculopathy, lumbar region (principal); G89.29 Other chronic pain; F32.A Depression, unspecified; I10 Essential (primary) hypertension; E11.42 Type 2 diabetes mellitus with diabetic polyneuropathy; E78.00 Pure hypercholesterolemia, unspecified; M79.18 Myalgia, other site; Z79.84 Long term (current) use of oral hypoglycemic drugs; Z79.899 Other long term (current) drug therapy; Z87.891 Personal history of nicotine dependence; Z88.8 Allergy status to other drugs, medicaments and biological substances; J30.1 Allergic rhinitis due to pollen
CPT/HCPCS: 64493; 64494; J0665; J3301; Q9967

== ENCOUNTER → 2024-06-11 | Outpatient (CLI) | payer MEDICARE, OTHER ==
[~2024-06-11] MED LIST changes: -ISOVUE-M 300 61% 15ML VIAL As Ordered ONE; -LIDOCAINE 1% SDV 30ML VIAL As Ordered ONE; -TRIAMCINOLONE ACETONIDE SUSP 40MG/ML 1ML VIAL As Ordered ONE
== END ==
LOC: M PAIN 16:30
PROVIDERS: ATTEND Anesthesiology
DX: M47.816 Spondylosis without myelopathy or radiculopathy, lumbar region (principal); G89.29 Other chronic pain; M54.50 Low back pain, unspecified; F32.A Depression, unspecified; I10 Essential (primary) hypertension; E11.42 Type 2 diabetes mellitus with diabetic polyneuropathy; E78.00 Pure hypercholesterolemia, unspecified; M79.18 Myalgia, other site; J30.1 Allergic rhinitis due to pollen; Z79.84 Long term (current) use of oral hypoglycemic drugs; Z79.899 Other long term (current) drug therapy; Z87.891 Personal history of nicotine dependence; Z88.8 Allergy status to other drugs, medicaments and biological substances

== ENCOUNTER → 2024-07-01 | Outpatient (REF) | payer MEDICARE, OTHER ==
[~2024-07-01] MED LIST changes: +MORP20SO PO
[2024-07-01 17:38] LABS: BASO # 0.1 10^3/uL (0.0-0.2); BASO % 1.1 % (0.0-1.0); EOS # 0.1 10^3/uL (0.0-0.5); EOS % 2.7 % (0.0-3.0); HEMATOCRIT 36.8 % (36.0-47.0); HEMOGLOBIN 11.8 g/dl (12.0-15.5); LYMPH # 0.9 10^3/uL (1.5-5.0); LYMPH % 20.7 % (24.0-44.0); MEAN CORPUSCULAR HEMOGLOBIN 28.6 pg (27.0-33.0); MEAN CORPUSCULAR HGB CONC 32.1 g/dl (32.0-36.5); MEAN CORPUSCULAR VOLUME 89.3 fl (80.0-96.0); MONO # 0.5 10^3/uL (0.0-0.8); MONO % 10.6 % (2.0-8.0); NEUTROPHILS # 2.9 10^3/uL (1.5-8.5); NEUTROPHILS % 64.5 % (36.0-66.0); PLATELET COUNT, AUTOMATED 165 10^3/uL (150-450); RED BLOOD COUNT 4.12 10^6/uL (4.00-5.40); WHITE BLOOD COUNT 4.5 10^3/uL (4.0-10.0)
[2024-07-01 18:03] LABS: IRON (FE) 56 UG/DL (50-170); PERCENT SATURATION 13.7 % (13.2-45.0); TOTAL IRON BINDING CAPACITY 410 UG/DL (250-425)
[2024-07-01 18:04] LABS: ALBUMIN 3.3 G/DL (3.2-5.2); ALKALINE PHOSPHATASE 135 U/L (35-104); ALT/SGPT 53 U/L (7.0-40); AST/SGOT 57 U/L (<34); BILIRUBIN,TOTAL 0.4 MG/DL (0.3-1.2); BLOOD UREA NITROGEN 17 MG/DL (9-23); CALCIUM LEVEL 10.2 MG/DL (8.3-10.6); CARBON DIOXIDE LEVEL 30 MMOL/L (20-31); CHLORIDE LEVEL 98 MMOL/L (98-107); CHOLESTEROL LEVEL 168 MG/DL (<200); CHOLESTEROL RISK RATIO 3.08 (<5); CREATININE FOR GFR 0.84 MG/DL (0.55-1.30); GLOMERULAR FILTRATION RATE > 60.0 (>39); GLUCOSE, FASTING 375 MG/DL (74-106); HDL CHOLESTEROL 54.5 MG/DL (>40); LDL CHOLESTEROL 86.1 MG/DL (<100); MAGNESIUM LEVEL 1.9 MG/DL (1.8-2.4); NON-HDL-C 113.5 MG/DL; POTASSIUM SERUM 4.7 MMOL/L (3.5-5.1); SODIUM LEVEL 138 MMOL/L (136-145); TOTAL PROTEIN 7.1 G/DL (5.7-8.2); TRIGLYCERIDES LEVEL 137 MG/DL (<150)
[2024-07-01 18:06] LABS: FERRITIN 20.2 NG/ML (7.3-270.7)
[2024-07-01 18:39] LABS: HEMOGLOBIN A1c 10.4 % (4.0-6.0)
== END ==
LOC: M SFHCCLAY 14:49
PROVIDERS: ATTEND Nurse Practitioner Family
DX: E11.8 Type 2 diabetes mellitus with unspecified complications (principal); G30.9 Alzheimer's disease, unspecified; F32.0 Major depressive disorder, single episode, mild; Z85.72 Personal history of non-Hodgkin lymphomas; M17.0 Bilateral primary osteoarthritis of knee; F51.01 Primary insomnia; M47.816 Spondylosis without myelopathy or radiculopathy, lumbar region; D50.8 Other iron deficiency anemias; E83.42 Hypomagnesemia; E78.5 Hyperlipidemia, unspecified

== ENCOUNTER → 2024-07-05 | Outpatient (CLI) | payer MEDICARE, OTHER ==
[~2024-07-05] VITALS: Ht 170.2 cm; Wt 79.0 kg
[2024-07-05 13:07] VITALS: BP 138/60; O2SAT 96
== END ==
LOC: M PAL 12:37
PROVIDERS: ATTEND Family Medicine
DX: Z51.5 Encounter for palliative care (principal); C83.30 Diffuse large B-cell lymphoma, unspecified site; R52 Pain, unspecified; Z66 Do not resuscitate; Z79.891 Long term (current) use of opiate analgesic; Z79.85 Long-term (current) use of injectable non-insulin antidiabetic drugs; Z79.4 Long term (current) use of insulin; Z79.84 Long term (current) use of oral hypoglycemic drugs; Z79.899 Other long term (current) drug therapy; Z88.8 Allergy status to other drugs, medicaments and biological substances

== ENCOUNTER → 2024-08-31 | Outpatient (REF) | payer MEDICARE, OTHER ==
[~2024-08-31] MED LIST changes: +FERR325T3 PO
[2024-08-31 18:02] LABS: ALBUMIN 3.2 G/DL (3.2-5.2); ALKALINE PHOSPHATASE 129 U/L (35-104); ALT/SGPT 41 U/L (7.0-40); AST/SGOT 45 U/L (<34); BILIRUBIN,TOTAL 0.3 MG/DL (0.3-1.2); BLOOD UREA NITROGEN 15 MG/DL (9-23); CALCIUM LEVEL 9.8 MG/DL (8.3-10.6); CARBON DIOXIDE LEVEL 31 MMOL/L (20-31); CHLORIDE LEVEL 103 MMOL/L (98-107); CHOLESTEROL LEVEL 147 MG/DL (<200); CHOLESTEROL RISK RATIO 3.46 (<5); GLOMERULAR FILTRATION RATE > 60.0 (>39); GLUCOSE, FASTING 235 MG/DL (74-106); HDL CHOLESTEROL 42.4 MG/DL (>40); LDL CHOLESTEROL 76.6 MG/DL (<100); NON-HDL-C 104.6 MG/DL; POTASSIUM SERUM 4.4 MMOL/L (3.5-5.1); SODIUM LEVEL 143 MMOL/L (136-145); TOTAL PROTEIN 6.7 G/DL (5.7-8.2); TRIGLYCERIDES LEVEL 140 MG/DL (<150)
[2024-08-31 18:40] LABS: HEMOGLOBIN A1c 9.5 % (4.0-6.0)
== END ==
LOC: M SFHCCLAY 14:24
PROVIDERS: ATTEND Nurse Practitioner Family
DX: E11.8 Type 2 diabetes mellitus with unspecified complications (principal)

== ENCOUNTER → 2024-09-13 | Outpatient (CLI) | payer MEDICARE, OTHER | LOC: M CLY 15:10 | PROVIDERS: ATTEND Physician Assistant | DX: R41.82 Altered mental status, unspecified (principal) ==

== ENCOUNTER → 2024-09-13 | Outpatient (REF) | payer MEDICARE, OTHER ==
[2024-09-13 17:00] LABS: BASO % 0.5 % (0.0-1.0); EOS # 0.1 10^3/uL (0.0-0.5); EOS % 0.8 % (0.0-3.0); HEMATOCRIT 40.1 % (36.0-47.0); HEMOGLOBIN 12.3 g/dl (12.0-15.5); LYMPH # 0.8 10^3/uL (1.5-5.0); MEAN CORPUSCULAR HEMOGLOBIN 27.2 pg (27.0-33.0); MEAN CORPUSCULAR HGB CONC 30.7 g/dl (32.0-36.5); MEAN CORPUSCULAR VOLUME 88.7 fl (80.0-96.0); MONO # 0.6 10^3/uL (0.0-0.8); MONO % 9.2 % (2.0-8.0); NEUTROPHILS # 4.5 10^3/uL (1.5-8.5); PLATELET COUNT, AUTOMATED 173 10^3/uL (150-450); RED BLOOD COUNT 4.52 10^6/uL (4.00-5.40)
== END ==
LOC: M SFHCCLAY 15:00
PROVIDERS: ATTEND Physician Assistant
DX: R41.82 Altered mental status, unspecified (principal)

== ENCOUNTER → 2024-09-14 | Outpatient (REF) | payer MEDICARE, OTHER ==
[2024-09-14 17:52] LABS: APPEARANCE, URINE HAZY (CLEAR); BACTERIA, URINE AUTO 3+ (NEGATIVE); BILIRUBIN, URINE AUTO NEGATIVE (NEGATIVE); BLOOD, URINE BLOOD NEGATIVE (NEGATIVE); COLOR, URINE YELLOW (YELLOW); GLUCOSE, URINE (UA) AUTO 3+ mg/dL (NEGATIVE); KETONE, URINE AUTO NEGATIVE (NEGATIVE); LEUKOCYTE ESTERASE, URINE AUTO TRACE (NEGATIVE); MUCUS, URINE MODERATE (NEGATIVE); NITRITE, URINE AUTO NEGATIVE (NEGATIVE); PROTEIN, URINE AUTO 1+ mg/dL (NEGATIVE); RBC, URINE AUTO 0 /HPF (0-3); SPECIFIC GRAVITY URINE AUTO 1.023 (1.002-1.035); SQUAMOUS EPITHELIAL CELL UR AU 0 /HPF (0-6); UROBILINOGEN, URINE AUTO 0.2 mg/dL (0.0-2.0); WBC, URINE AUTO 11 /HPF (0-3)
[2024-09-14 17:54] LABS: ALBUMIN 3.1 G/DL (3.2-5.2); BILIRUBIN,TOTAL 0.3 MG/DL (0.3-1.2); CREATININE FOR GFR 0.98 MG/DL (0.55-1.30); GLOMERULAR FILTRATION RATE 59.2 (>39); POTASSIUM SERUM 4.1 MMOL/L (3.5-5.1); TOTAL PROTEIN 6.6 G/DL (5.7-8.2)
[2024-09-14 17:57] LABS: THYROID STIMULATING HORMONE 0.276 uIU/ML (0.55-4.78)
== END ==
LOC: M SFHCCLAY 12:59
PROVIDERS: ATTEND Physician Assistant
DX: R41.82 Altered mental status, unspecified (principal)

== ENCOUNTER → 2024-10-04 | Outpatient (CLI) | payer OTHER ==
[~2024-10-04] VITALS: Ht 170.2 cm; Wt 75.3 kg
[2024-10-04 13:22] VITALS: BP 121/62; O2SAT 98
== END ==
LOC: M PAL 12:42
PROVIDERS: ATTEND Physician Assistant
DX: Z51.5 Encounter for palliative care (principal); Z66 Do not resuscitate; C83.32 Diffuse large B-cell lymphoma, intrathoracic lymph nodes; G30.9 Alzheimer's disease, unspecified; Z79.891 Long term (current) use of opiate analgesic; Z79.899 Other long term (current) drug therapy; Z88.6 Allergy status to analgesic agent; Z88.1 Allergy status to other antibiotic agents; Z88.8 Allergy status to other drugs, medicaments and biological substances

== ENCOUNTER → 2024-10-22 | Outpatient (REF) | payer MEDICARE, OTHER ==
[~2024-10-22] MED LIST changes: -AMBI10TA PO; +ZOLP-533 PO
[2024-10-22 18:14] LABS: ALBUMIN 3.2 G/DL (3.2-5.2); BILIRUBIN,TOTAL 0.3 MG/DL (0.3-1.2); CALCIUM LEVEL 9.3 MG/DL (8.3-10.6); CREATININE FOR GFR 0.87 MG/DL (0.55-1.30); GLOMERULAR FILTRATION RATE 70.3 (>39); POTASSIUM SERUM 4.5 MMOL/L (3.5-5.1); TOTAL PROTEIN 6.4 G/DL (5.7-8.2)
[2024-10-22 18:20] LABS: BASO # 0.1 10^3/uL (0.0-0.2); BASO % 1.2 % (0.0-1.0); EOS # 0.1 10^3/uL (0.0-0.5); EOS % 2.4 % (0.0-3.0); HEMATOCRIT 38.5 % (36.0-47.0); HEMOGLOBIN 11.9 g/dl (12.0-15.5); LYMPH # 0.7 10^3/uL (1.5-5.0); LYMPH % 13.5 % (24.0-44.0); MEAN CORPUSCULAR HEMOGLOBIN 27.2 pg (27.0-33.0); MEAN CORPUSCULAR HGB CONC 30.9 g/dl (32.0-36.5); MEAN CORPUSCULAR VOLUME 87.9 fl (80.0-96.0); MONO # 0.4 10^3/uL (0.0-0.8); NEUTROPHILS # 3.7 10^3/uL (1.5-8.5); NEUTROPHILS % 74.5 % (36.0-66.0); PLATELET COUNT, AUTOMATED 201 10^3/uL (150-450); RED BLOOD COUNT 4.38 10^6/uL (4.00-5.40)
[2024-10-22 18:53] LABS: HEMOGLOBIN A1c 6.8 % (4.0-6.0)
== END ==
LOC: M SFHCCLAY 11:41
PROVIDERS: ATTEND Physician Assistant
DX: E11.8 Type 2 diabetes mellitus with unspecified complications (principal); C85.89 Other specified types of non-Hodgkin lymphoma, extranodal and solid organ sites

== ENCOUNTER → 2025-01-10 | Outpatient (CLI) | payer OTHER ==
[~2025-01-10] VITALS: Ht 167.6 cm; Wt 74.9 kg
[~2025-01-10] MED LIST changes: -PRAV40TA2 PO; +PRAV40TA85 PO
[2025-01-10 14:26] VITALS: BP 133/69; O2SAT 99
== END ==
LOC: M PAL 13:51
PROVIDERS: ATTEND Physician Assistant
DX: Z51.5 Encounter for palliative care (principal); C83.32 Diffuse large B-cell lymphoma, intrathoracic lymph nodes; G30.9 Alzheimer's disease, unspecified; R52 Pain, unspecified; Z66 Do not resuscitate; Z79.01 Long term (current) use of anticoagulants; Z79.4 Long term (current) use of insulin; Z79.84 Long term (current) use of oral hypoglycemic drugs; Z79.85 Long-term (current) use of injectable non-insulin antidiabetic drugs; Z79.891 Long term (current) use of opiate analgesic; Z79.899 Other long term (current) drug therapy; Z88.8 Allergy status to other drugs, medicaments and biological substances

== ENCOUNTER → 2025-01-31 | Outpatient (CLI) | payer MEDICARE ==
[~2025-01-31] VITALS: Ht 170.2 cm; Wt 74.8 kg
[~2025-01-31] MED LIST changes: +FARX1TAB3 PO; +HYDR-4514 PO; +VITA200048 PO
[2025-01-31 14:13] VITALS: BP 140/73; O2SAT 97
== END ==
LOC: M PAL 13:46
PROVIDERS: ATTEND Physician Assistant
DX: Z51.5 Encounter for palliative care (principal); Z66 Do not resuscitate; C83.30 Diffuse large B-cell lymphoma, unspecified site; G30.9 Alzheimer's disease, unspecified; Z79.891 Long term (current) use of opiate analgesic; Z88.6 Allergy status to analgesic agent; Z88.1 Allergy status to other antibiotic agents; Z88.8 Allergy status to other drugs, medicaments and biological substances; Z79.899 Other long term (current) drug therapy; Z79.52 Long term (current) use of systemic steroids; Z79.84 Long term (current) use of oral hypoglycemic drugs

== ENCOUNTER → 2025-02-15 | Outpatient (REF) | payer MEDICARE ==
[~2025-02-15] MED LIST changes: -ASPI-655 PO; +ASPI-737 PO
[2025-02-15 19:18] LABS: BASO # 0.0 10^3/uL (0.0-0.2); BASO % 0.3 % (0.0-1.0); EOS # 0.1 10^3/uL (0.0-0.5); EOS % 4.5 % (0.0-3.0); LYMPH # 0.9 10^3/uL (1.5-5.0); LYMPH % 29.2 % (24.0-44.0); MONO # 0.4 10^3/uL (0.0-0.8); MONO % 13.7 % (2.0-8.0); NEUTROPHILS # 1.5 10^3/uL (1.5-8.5); NEUTROPHILS % 51.6 % (36.0-66.0); PLATELET COUNT, AUTOMATED 159 10^3/uL (150-450)
[2025-02-15 19:39] LABS: IRON (FE) 48.0 UG/DL (50-170)
[2025-02-15 19:40] LABS: ALT/SGPT 44.0 U/L (7.0-40); AST/SGOT 59.0 U/L (<34); CALCIUM LEVEL 9.9 MG/DL (8.3-10.6); CARBON DIOXIDE LEVEL 26.0 MMOL/L (20-31); CHLORIDE LEVEL 106.0 MMOL/L (98-107); CREATININE FOR GFR 1.11 MG/DL (0.55-1.30); GLOMERULAR FILTRATION RATE 52.5 (>39); PERCENT SATURATION 13.8 % (13.2-45.0); POTASSIUM SERUM 4.8 MMOL/L (3.5-5.1); SODIUM LEVEL 146.0 MMOL/L (136-145)
== END ==
LOC: M LABDRAWC 17:26
PROVIDERS: ATTEND Internal Medicine Medical Oncology
DX: C85.90 Non-Hodgkin lymphoma, unspecified, unspecified site (principal)

== ENCOUNTER → 2025-03-01 | Outpatient (CLI) | payer MEDICARE, OTHER | LOC: M PLARAD 09:11 | PROVIDERS: ATTEND Internal Medicine Medical Oncology | DX: C83.38 Diffuse large B-cell lymphoma, lymph nodes of multiple sites (principal) | CPT/HCPCS: 78815; A9552 ==

== ENCOUNTER → 2025-03-04 | Outpatient (REF) | payer MEDICARE, OTHER ==
[~2025-03-04] MED LIST changes: -ZOLP5TAB; +ZOLP5TAB9
[2025-03-04 18:24] LABS: BASO # 0.1 10^3/uL (0.0-0.2); BASO % 1.4 % (0.0-1.0); EOS # 0.1 10^3/uL (0.0-0.5); EOS % 3.1 % (0.0-3.0); LYMPH # 0.6 10^3/uL (1.5-5.0); LYMPH % 17.1 % (24.0-44.0); MONO # 0.4 10^3/uL (0.0-0.8); MONO % 11.7 % (2.0-8.0); NEUTROPHILS # 2.3 10^3/uL (1.5-8.5); NEUTROPHILS % 66.1 % (36.0-66.0); PLATELET COUNT, AUTOMATED 147 10^3/uL (150-450)
[2025-03-04 18:29] LABS: LDH LACTATE DEHYDROGENASE 169.0 U/L (120-246)
[2025-03-04 18:30] LABS: ALT/SGPT 90.0 U/L (7.0-40); AST/SGOT 133.0 U/L (<34); CALCIUM LEVEL 9.8 MG/DL (8.3-10.6); CARBON DIOXIDE LEVEL 27.0 MMOL/L (20-31); CHLORIDE LEVEL 104.0 MMOL/L (98-107); CREATININE FOR GFR 0.91 MG/DL (0.55-1.30); GLOMERULAR FILTRATION RATE 66.6 (>39); POTASSIUM SERUM 4.6 MMOL/L (3.5-5.1); SODIUM LEVEL 144.0 MMOL/L (136-145)
== END ==
LOC: M LABDRAWC 17:18
PROVIDERS: ATTEND Internal Medicine Medical Oncology
DX: C83.70 Burkitt lymphoma, unspecified site (principal)

== ENCOUNTER → 2025-04-08 | Outpatient (CLI) | payer OTHER ==
[~2025-04-08] MED LIST changes: +OXYC-517 PO
== END ==
LOC: M SOG 07:28
PROVIDERS: ATTEND Orthopaedic Surgery
DX: M17.11 Unilateral primary osteoarthritis, right knee (principal); M25.461 Effusion, right knee